=== PATIENT | female | born 1950 ===

== ENCOUNTER → 2016-06-03 | Outpatient (CLI) | payer MEDICARE ==
[~2016-06-03] MED LIST: DENOSUMAB 60 MG/ML 1 ML SYRINGE SQ NR
[2016-06-03 14:29] VITALS: BP 145/65; PULSE 87; RESP 16; TEMP 97.8
== END | disposition home or self-care (01) ==
LOC: PROCWHC3 13:29
PROVIDERS: ATTEND Internal Medicine
DX: M81.0 Age-related osteoporosis without current pathological fracture (principal)
CPT/HCPCS: 96372

== ENCOUNTER → 2016-08-27 | Outpatient (CLI) | payer MEDICARE ==
--- NOTE | 2016-08-27 12:39 | XR ---
EXAMINATION TYPE: XR lumbosacral spine min 4V DATE OF EXAM: 08/27/2016 CLINICAL HISTORY: pain COMPARISON: NONE TECHNIQUE: Frontal, lateral, and oblique images of the lumbar spine are obtained. FINDINGS: Loss of vertebral body height is noted from T11 through L4. T12 and L3 are affected to a gr eater degree with the loss of height estimated at greater than 75%. The findings are likely related t o osteoporotic compression fractures. Degenerative narrowing and spondylosis identified. No obvious b dileep retropulsion. Facet joint arthropathy. IMPRESSION: The findings are likely related to osteoporotic compression fractures.
== END | disposition home or self-care (01) ==
LOC: RADXRMAIN 12:10
PROVIDERS: ATTEND Internal Medicine
DX: M54.5 Low back pain (principal)
CPT/HCPCS: 72110

== ENCOUNTER 2017-02-28 00:38 | Observation (INO) | payer MEDICARE ==
[2017-02-28] MEDS ORDERED: SODIUM CHLORIDE 0.9% 1,000 ML with MVI, ADULT NO.4 WITH VIT K 10 ML, THIAMINE 100 MG, F... IV ONE ×4 (00:49)
[2017-02-28 01:11] LABS: Basophils % (A) 1 %; Eosinophils % (A) 1 %; HCT 36.8 % (34.0-46.0); HGB 12.3 gm/dL (11.4-16.0); Lymphocytes # (A) 0.4 k/uL (1.0-4.8); Lymphocytes % (A) 9 %; MCH 34.1 pg (25.0-35.0); MCHC 33.4 g/dL (31.0-37.0); MCV 101.8 fL (80.0-100.0); Macrocytosis Slight; Mean Platelet Volume 6.6; Monocytes # (A) 0.3 k/uL (0-1.0); Monocytes % (A) 6 %; Neutrophils # (A) 3.7 k/uL (1.3-7.7); Neutrophils % (A) 81 %; Platelet Count 187 k/uL (150-450); RBC 3.62 m/uL (3.80-5.40); RDW 13.8 % (11.5-15.5); WBC 4.5 k/uL (3.8-10.6)
--- NOTE | 2017-02-28 01:36 | ED ---
General Adult HPI - General Chief complaint: Fall Stated complaint: Fall/ETOH Time Seen by Provider: 02/28/17 00:40 Source: EMS, RN notes reviewed Mode of arrival: EMS Limitations: no limitations - History of Present Illness Initial comments: This is a 66-year-old female presents emergency Department stating that she drank too much tonight and fell. Patient states she has a bump on the back of her head which she denies headache she denies any numbness weakness and she denies any neck pain. Patient however is intoxicated. Patient also has some skin tears on both elbows and also on her formed bilaterally. Patient denies any chest pain palpitations difficulty breathing shortness of breath per patient denies any abdominal pain patient denies any nausea vomiting or diarrhea. Patient denies any new back pain. She states she has chronic back pain but nothing is changed. Patient denies any drug use. - Related Data Home Medications Medication Instructions Recorded Confirmed Calcium Carbonate [Calcium] 600 mg PO DAILY 06/03/16 06/03/16 Cholecalciferol [Vitamin D3] 1,000 unit PO DAILY 06/03/16 06/03/16 HYDROcodone/APAP 5-325MG [[place] 1 tab PO RT-BID PRN 06/03/16 06/03/16 5-325] Allergies Allergy/AdvReac Type Severity Reaction Status Date / Time No Known Allergies Allergy Verified 02/28/17 00:49 Review of Systems ROS Statement: Those systems with pertinent positive or pertinent negative responses have been documented in the HPI. ROS Other: All systems not noted in ROS Statement are negative. Past Medical History Past Medical History: Rheumatoid Arthritis (RA) Additional Past Medical History / Comment(s): osteoporosis History of Any Multi-Drug Resistant Organisms: None Reported Past Surgical History: Section, Tonsillectomy Additional Past Surgical History / Comment(s): bilateral cataract surgery Past Anesthesia/Blood Transfusion Reactions: No Reported Reaction Past Psychological History: Anxiety, Depression Smoking Status: Former smoker Past Alcohol Use History: Abuse, Daily, Heavy General Exam - General Exam Comments Initial Comments: GENERAL: Patient is well-developed and well-nourished. Patient is nontoxic and well- hydrated and is in no acute distress. Patient has a hematoma to the back of her scalp in the occipital region. Patient is intoxicated. ENT: Neck is soft and supple. No significant lymphadenopathy is noted. Oropharynx is clear. Moist mucous membranes. Neck has full range of motion without eliciting any pain. EYES: The sclera were anicteric and conjunctiva were pink and moist. Extraocular movements were intact and pupils were equal round and reactive to light. Eyelids were unremarkable. PULMONARY: Unlabored respirations. Good breath sounds bilaterally. No audible rales rhonchi or wheezing was noted. CARDIOVASCULAR: There is a regular rate and rhythm without any murmurs gallops or rubs. ABDOMEN: Soft and nontender with normal bowel sounds. No palpable organomegaly was noted. There is no palpable pulsatile mass. SKIN: Patient has skin tears on both elbows both forearms. NEUROLOGIC: Patient is alert and oriented x3. Cranial nerves II through XII are grossly intact. Motor and sensory are also intact. Normal speech, volume and content. Symmetrical smile. MUSCULOSKELETAL: Normal extremities with adequate strength and full range of motion. No lower extremity swelling or edema. No calf tenderness. LYMPHATICS: No significant lymphadenopathy is noted PSYCHIATRIC: Normal psychiatric evaluation. Limitations: no limitations Course Vital Signs 02/28/17 02/28/17 00:39 03:03 Temperature 98.1 F Pulse Rate 84 80 Respiratory 18 16 Rate Blood Pressure 149/92 134/62 O2 Sat by Pulse 100 100 Oximetry Medical Decision Making - Medical Decision Making Patient's CT of the brain and C-spine are negative. Patient is hyponatremic hypomagnesemic and intoxicated. I spoke with Dr. Barney he agreed to admit the patient I wrote admitting orders. - Lab Data Result diagrams: 02/28/17 01:03 02/28/17 01:03 Lab Results 02/28/17 02/28/17 Range/Units 01:03 01:03 WBC 4.5 (3.8-10.6) k/uL RBC 3.62 L (3.80-5.40) m/uL Hgb 12.3 (11.4-16.0) gm/dL Hct 36.8 (34.0-46.0) % MCV 101.8 H (80.0-100.0) fL MCH 34.1 (25.0-35.0) pg MCHC 33.4 (31.0-37.0) g/dL RDW 13.8 (11.5-15.5) % Plt Count 187 (150-450) k/uL Neutrophils % 81 % Lymphocytes % 9 % Monocytes % 6 % Eosinophils % 1 % Basophils % 1 % Neutrophils # 3.7 (1.3-7.7) k/uL Lymphocytes # 0.4 L (1.0-4.8) k/uL Monocytes # 0.3 (0-1.0) k/uL Eosinophils # 0.0 (0-0.7) k/uL Basophils # 0.0 (0-0.2) k/uL Macrocytosis Slight Sodium 122 L (137-145) mmol/L Potassium 4.5 (3.5-5.1) mmol/L Chloride 83 L (98-107) mmol/L Carbon Dioxide 23 (22-30) mmol/L Anion Gap 16 mmol/L BUN 3 L (7-17) mg/dL Creatinine 0.40 L (0.52-1.04) mg/dL Est GFR (MDRD) Af Amer >60 (>60 ml/min/1.73 sqM) Est GFR (MDRD) Non-Af >60 (>60 ml/min/1.73 sqM) Glucose 88 (74-99) mg/dL Calcium 8.8 (8.4-10.2) mg/dL Magnesium 1.5 L (1.6-2.3) mg/dL Total Bilirubin 0.8 (0.2-1.3) mg/dL AST 231 H (14-36) U/L ALT 102 H (9-52) U/L Alkaline Phosphatase 104 (38-126) U/L Total Protein 6.6 (6.3-8.2) g/dL Albumin 3.9 (3.5-5.0) g/dL Serum Alcohol 256 mg/dL Disposition Clinical Impression: Fall, Alcohol intoxication, Acute hyponatremia, Hypomagnesemia, Skin tear Disposition: ADMITTED IP TO THIS HOSP Referrals: Mariela Sosa MD [Primary Care Provider] - 1-2 days Time of Disposition: 03:09
[2017-02-28 01:37] LABS: ALT 102 U/L (9-52); AST 231 U/L (14-36); Albumin 3.9 g/dL (3.5-5.0); Alkaline Phosphatase 104 U/L (38-126); Anion Gap 16 mmol/L; Blood Urea Nitrogen 3 mg/dL (7-17); Calcium 8.8 mg/dL (8.4-10.2); Carbon Dioxide 23 mmol/L (22-30); Chloride 83 mmol/L (98-107); Glucose 88 mg/dL (74-99); Magnesium 1.5 mg/dL (1.6-2.3); Potassium 4.5 mmol/L (3.5-5.1); Sodium 122 mmol/L (137-145); Total Bilirubin 0.8 mg/dL (0.2-1.3); Total Protein 6.6 g/dL (6.3-8.2)
[2017-02-28 01:43] LABS: Alcohol 256 mg/dL
[2017-02-28] MEDS ORDERED: MAGNESIUM SULFATE-D5W PMX 1 GM in DEXTROSE/WATER 1 100ML.BAG IVPB ONE (01:51)
--- NOTE | 2017-02-28 01:55 | CT ---
EXAMINATION TYPE: CT brain swetha sears DATE OF EXAM: 02/28/2017 COMPARISON: NONE HISTORY: fall CT DLP: head 998.60 body 228.80 mGycm Automated exposure control for dose reduction was used. TECHNIQUE: CT scan of the head and cervical spine are performed without contrast. FINDINGS: There is mild cerebral cortical atrophy. There is no mass effect nor midline shift. There is no sign of intracranial hemorrhage. The calvarium is intact. Cervical vertebra have fairly normal alignment. There is mild hypertrophic facet arthropathy in the u pper cervical spine. There is spurring of the endplates. Skull base is intact. There is no evidence o f a fracture. IMPRESSION: Cerebral atrophy. No acute intracranial abnormality. Spondylotic changes in the cervical spine. No fracture.
[2017-02-28 03:03] VITALS: RESP 16
[2017-02-28] MEDS ORDERED: LORazepam 2 MG/ML INJ IV PRN ×3 (03:12)
[2017-02-28] MEDS ORDERED: THIAMINE 100 MG/ML 2 ML VIAL IM STA (03:12)
[2017-02-28 04:41] VITALS: BMI 33.5
[2017-02-28 08:19] VITALS: BP 110/62; PULSE 90; TEMP 98.6
--- NOTE | 2017-02-28 15:15 | P.HPIM ---
History of Present Illness H&P Date: 02/28/17 Chief Complaint: Alcohol intoxication This is a 66-year-old female with past medical history significant for heavy alcohol abuse who presented to the hospital intoxicated with alcohol. Patient said that she failed backward and hit her head. She did not have any neurological deficits or evidence of ongoing bleed. She was evaluated in the emergency room. She underwent a computed tomography scan of the brain and cervical spine showing no acute findings. Patient's alcohol level was found to be 256. She was started on IV fluid hydration and was placed in observation. Patient was not answering my questions regarding how much alcohol she usually drinks. She initially said 2 beers per day and then when I told her that she may be drinking more she said that she drinks usually 6 beers per day. I counseled her extensively about alcohol and offered her different options of treatment including going to rehab to [place]. Patient told me frankly that she is not interested to quit. She said that she's in and started drinking when she go home. She is not having any withdrawal symptoms at this time Review of Systems Review of system: 14 points review of systems were obtained and were negative except to what were mentioned in the HPI. Past Medical History Past Medical History: Asthma, COPD, Dementia, Hearing Disorder / Deafness, Hyperlipidemia, Memory Impairment, Osteoarthritis (OA), Rheumatoid Arthritis (RA ) Additional Past Medical History / Comment(s): osteoporosis, left wrist and shoulder Fx, multiple upper and Lower back fractures History of Any Multi-Drug Resistant Organisms: None Reported Past Surgical History: Section, Tonsillectomy Additional Past Surgical History / Comment(s): bilateral cataract surgery Past Anesthesia/Blood Transfusion Reactions: No Reported Reaction Past Psychological History: Anxiety, Depression Smoking Status: Former smoker Past Alcohol Use History: Abuse, Daily, Heavy - Past Family History Father Family Medical History: No Reported History Mother Family Medical History: No Reported History Medications and Allergies Home Medications Medication Instructions Recorded Confirmed Type Calcium Carbonate [Calcium] 600 mg PO DAILY 06/03/16 02/28/17 History Cholecalciferol [Vitamin D3] 1,000 unit PO DAILY 06/03/16 02/28/17 History HYDROcodone/APAP 5-325MG [[place] 1 tab PO RT-BID PRN 06/03/16 02/28/17 History 5-325] Multivitamins, Thera [Multivitamin 1 tab PO DAILY 02/28/17 02/28/17 History (formulary)] Allergies Allergy/AdvReac Type Severity Reaction Status Date / Time No Known Allergies Allergy Verified 02/28/17 09:24 Physical Exam Vitals: Vital Signs Temp Pulse Pulse Resp BP BP Pulse Ox 02/28/17 12:00 90 16 02/28/17 08:00 98.6 F 90 16 110/62 97 02/28/17 04:15 98.5 F 97 16 138/69 97 02/28/17 04:00 16 02/28/17 03:03 80 16 134/62 100 02/28/17 00:39 98.1 F 84 18 149/92 100 Intake and Output 02/28/17 02/28/17 02/28/17 06:59 14:59 22:59 Other: Voiding Method Bedside Commode # Voids 1 Weight 56.245 kg General: The patient is awake and alert, in no distress Eye: there is normal conjunctiva bilaterally. Neck: The neck is supple, there is no JVD. Cardiovascular: Normal S1-S2, no S3-S4, no murmurs. Respiratory: Lungs clear to auscultation bilaterally Gastrointestinal: Abdomen is soft, nontender Musculoskeletal: There is no pedal edema. Neurological:. Speech is normal. Skin: Skin is warm and dry there is scattered bruising on all 4 extremities Results CBC & Chem 7: 02/28/17 01:03 02/28/17 01:03 Labs: Abnormal Lab Results - Last 24 Hours (Table) 02/28/17 02/28/17 Range/Units 01:03 01:03 RBC 3.62 L (3.80-5.40) m/uL MCV 101.8 H (80.0-100.0) fL Lymphocytes # 0.4 L (1.0-4.8) k/uL Sodium 122 L (137-145) mmol/L Chloride 83 L (98-107) mmol/L BUN 3 L (7-17) mg/dL Creatinine 0.40 L (0.52-1.04) mg/dL Magnesium 1.5 L (1.6-2.3) mg/dL AST 231 H (14-36) U/L ALT 102 H (9-52) U/L Thrombosis Risk Factor Assmnt - Choose All That Apply Each Factor Represents 1 point: Minor surgery planned Each Risk Factor Represents 2 Points: Age 61-74 years Thrombosis Risk Factor Assessment Total Risk Factor Score: 3 Thrombosis Risk Factor Assessment Level: Moderate Risk Assessment and Plan Assessment: This is a 66-year-old female with past medical history significant for heavy alcohol abuse who presented to the hospital intoxicated with alcohol. Patient said that she failed backward and hit her head. She did not have any neurological deficits or evidence of ongoing bleed. She was evaluated in the emergency room. She underwent a computed tomography scan of the brain and cervical spine showing no acute findings. Patient's alcohol level was found to be 256. She was started on IV fluid hydration and was placed in observation. Patient was not answering my questions regarding how much alcohol she usually drinks. She initially said 2 beers per day and then when I told her that she may be drinking more she said that she drinks usually 6 beers per day. I counseled her extensively about alcohol and offered her different options of treatment including going to rehab to [place]. Patient told me frankly that she is not interested to quit. She said that she's in and started drinking when she go home. She is not having any withdrawal symptoms at this time 1. Alcohol intoxication: Now sober. Patient was hydrated aggressively overnight. 2. Mechanical fall: Computed tomography scan of the brain and cervical spine with no acute findings 3. Heavy alcohol abuse: Counseled extensively. Patient is not interested to quit. 4. Hyponatremia: Secondary to heavy beer drinking. Counseled extensively.
--- NOTE | 2017-02-28 15:16 | P.DS ---
Providers Date of admission: 02/28/17 03:09 Expected date of discharge: 02/28/17 Attending physician: Chantel Barney Primary care physician: Mariela Sheila [facility] Course: This is a 66-year-old female with past medical history significant for heavy alcohol abuse who presented to the hospital intoxicated with alcohol. Patient said that she failed backward and hit her head. She did not have any neurological deficits or evidence of ongoing bleed. She was evaluated in the emergency room. She underwent a computed tomography scan of the brain and cervical spine showing no acute findings. Patient's alcohol level was found to be 256. She was started on IV fluid hydration and was placed in observation. Patient was not answering my questions regarding how much alcohol she usually drinks. She initially said 2 beers per day and then when I told her that she may be drinking more she said that she drinks usually 6 beers per day. I counseled her extensively about alcohol and offered her different options of treatment including going to rehab to [place]. Patient told me frankly that she is not interested to quit. She said that she's in and started drinking when she go home. She is not having any withdrawal symptoms at this time 1. Alcohol intoxication: Now sober. Patient was hydrated aggressively overnight. 2. Mechanical fall: Computed tomography scan of the brain and cervical spine with no acute findings 3. Heavy alcohol abuse: Counseled extensively. Patient is not interested to quit. 4. Hyponatremia: Secondary to heavy beer drinking. Counseled extensively. Patient Condition at Discharge: Poor Plan - Discharge Summary Discharge Rx Participant: No New Discharge Prescriptions: New Folic Acid 1 mg PO DAILY #14 tablet Thiamine [Vitamin B-1] 100 mg PO BID@1200,1700 #14 tab Continue Cholecalciferol [Vitamin D3] 1,000 unit PO DAILY HYDROcodone/APAP 5-325MG [[place] 5-325] 1 tab PO RT-BID PRN PRN Reason: Moderate To Severe Pain Calcium Carbonate [Calcium] 600 mg PO DAILY Multivitamins, Thera [Multivitamin (formulary)] 1 tab PO DAILY Discharge Medication List Calcium Carbonate [Calcium] 600 mg PO DAILY 06/03/16 [History] Cholecalciferol [Vitamin D3] 1,000 unit PO DAILY 06/03/16 [History] HYDROcodone/APAP 5-325MG [[place] 5-325] 1 tab PO RT-BID PRN 06/03/16 [History] Folic Acid 1 mg PO DAILY #14 tablet 02/28/17 [Rx] Multivitamins, Thera [Multivitamin (formulary)] 1 tab PO DAILY 02/28/17 [History ] Thiamine [Vitamin B-1] 100 mg PO BID@1200,1700 #14 tab 02/28/17 [Rx] Follow up Appointment(s)/Referral(s): Mariela Sosa MD [Primary Care Provider] - 1-2 days
[2017-02-28] MEDS ORDERED: THIAMINE 100 MG TAB PO SCH (17:00)
== END 2017-02-28 16:19 | disposition home or self-care (01) ==
LOC: EC 00:38 → 3OBS 03:09
PROVIDERS: ADMIT Internal Medicine; ATTEND Internal Medicine
DX: F10.129 Alcohol abuse with intoxication, unspecified (principal); Y90.8 Blood alcohol level of 240 mg/100 ml or more; E87.1 Hypo-osmolality and hyponatremia; E83.42 Hypomagnesemia; S51.812A Laceration without foreign body of left forearm, initial encounter; S51.811A Laceration without foreign body of right forearm, initial encounter; S51.011A Laceration without foreign body of right elbow, initial encounter; S51.012A Laceration without foreign body of left elbow, initial encounter; S00.03XA Contusion of scalp, initial encounter; W18.30XA Fall on same level, unspecified, initial encounter; G89.29 Other chronic pain; M54.9 Dorsalgia, unspecified; M06.9 Rheumatoid arthritis, unspecified; M81.0 Age-related osteoporosis without current pathological fracture; Z87.891 Personal history of nicotine dependence; H91.90 Unspecified hearing loss, unspecified ear; M19.90 Unspecified osteoarthritis, unspecified site
CPT/HCPCS: 99285; 96361 ×2; 96365 ×2; 96375; 36415; 80053; 83735; 85025; 80320; 72125; 70450; G0378; J2060; J3411; J3475

== ENCOUNTER 2017-03-17 13:06 | Inpatient (IN) | payer MEDICARE ==
[2017-03-17] MEDS ORDERED: FUROSEMIDE 10 MG/ML 2 ML VIAL IV ONE (13:39)
[2017-03-17] MEDS ORDERED: IPRATROPIUM-ALBUTEROL 3 ML NEB INHALATION STA (13:43)
--- NOTE | 2017-03-17 13:43 | ED ---
General Adult HPI - General Chief complaint: Weakness Stated complaint: Swollen feet/Weak Time Seen by Provider: 03/17/17 13:20 Source: patient, RN notes reviewed Mode of arrival: wheelchair Limitations: no limitations - History of Present Illness Initial comments: This is a 67-year-old female who presents to the emergency department because her feet are swollen and she's unable times. Patient states been ongoing all week and getting progressively worse. Patient thinks she can't walk because her feet are swollen and it hurts but she also states she feels weak all over. Patient denies any pain while lying in bed. Patient states she's so short of breath currently for emphysema and according to her nephew she continues to smoke. Patient denies any chest pain palpitations. Patient denies any recent fever chills or cough per patient denies abdominal pain patient denies nausea vomiting diarrhea. - Related Data Home Medications Medication Instructions Recorded Confirmed HYDROcodone/APAP 5-325MG [[place] 1 tab PO RT-BID PRN 06/03/16 03/17/17 5-325] Ibuprofen 400 - 800 mg PO Q6H PRN 03/17/17 03/17/17 Allergies Allergy/AdvReac Type Severity Reaction Status Date / Time No Known Allergies Allergy Verified 03/17/17 13:48 Review of Systems ROS Statement: Those systems with pertinent positive or pertinent negative responses have been documented in the HPI. ROS Other: All systems not noted in ROS Statement are negative. Past Medical History Past Medical History: Asthma, COPD, Dementia, Hearing Disorder / Deafness, Hyperlipidemia, Memory Impairment, Osteoarthritis (OA), Rheumatoid Arthritis (RA ) Additional Past Medical History / Comment(s): osteoporosis, left wrist and shoulder Fx, multiple upper and Lower back fractures History of Any Multi-Drug Resistant Organisms: None Reported Past Surgical History: Section, Tonsillectomy Additional Past Surgical History / Comment(s): bilateral cataract surgery Past Anesthesia/Blood Transfusion Reactions: No Reported Reaction Past Psychological History: Anxiety, Depression Smoking Status: Current some day smoker Past Alcohol Use History: Abuse, Daily, Heavy Past Drug Use History: None Reported - Past Family History Father Family Medical History: No Reported History Mother Family Medical History: No Reported History General Exam - General Exam Comments Initial Comments: GENERAL: Patient is well-developed and well-nourished. Patient is nontoxic and well- hydrated and is in mild distress. ENT: Neck is soft and supple. No significant lymphadenopathy is noted. Oropharynx is clear. Moist mucous membranes. Neck has full range of motion without eliciting any pain. EYES: The sclera were anicteric and conjunctiva were pink and moist. Extraocular movements were intact and pupils were equal round and reactive to light. Eyelids were unremarkable. PULMONARY: Patient has diminished breath sounds throughout. CARDIOVASCULAR: There is a regular rate and rhythm without any murmurs gallops or rubs. ABDOMEN: Soft and nontender with normal bowel sounds. No palpable organomegaly was noted. There is no palpable pulsatile mass. SKIN: Skin is clear with no lesions or rashes and otherwise unremarkable. NEUROLOGIC: Patient is alert and oriented x3. Cranial nerves II through XII are grossly intact. Motor and sensory are also intact. Normal speech, volume and content. Symmetrical smile. MUSCULOSKELETAL: Normal extremities with adequate strength and full range of motion. Patient has 2+ edema bilaterally LYMPHATICS: No significant lymphadenopathy is noted PSYCHIATRIC: Normal psychiatric evaluation. Normal interpersonal interactions appears functionally intact in deals appropriately with others. Limitations: no limitations Course Vital Signs 03/17/17 03/17/17 03/17/17 13:22 13:56 14:06 Temperature 97.7 F Pulse Rate 85 80 82 Respiratory 18 Rate Blood Pressure 123/60 O2 Sat by Pulse 99 Oximetry 03/17/17 14:19 Temperature Pulse Rate 78 Respiratory 20 Rate Blood Pressure 138/64 O2 Sat by Pulse 100 Oximetry Medical Decision Making - Medical Decision Making EKG shows normal sinus rhythm at 75 bpm DE interval is 138 QRS is 86 QT interval 386 QTC is 431 per patient's EKG shows no ST segment elevation or depression or T wave abnormalities are noted I spoke with Dr. Sheila Sosa agreed to admit the patient admitted the patient. Chest x-ray shows no acute abnormality - Lab Data Result diagrams: 03/17/17 14:07 03/17/17 14:07 Lab Results 03/17/17 03/17/17 03/17/17 Range/Units 14:07 14: 14:07 WBC 2.7 L (3.8-10.6) k/uL RBC 3.51 L (3.80-5.40) m/uL Hgb 11.7 (11.4-16.0) gm/dL Hct 34.9 (34.0-46.0) % MCV 99.5 (80.0-100.0) fL MCH 33.4 (25.0-35.0) pg MCHC 33.6 (31.0-37.0) g/dL RDW 13.4 (11.5-15.5) % Plt Count 184 (150-450) k/uL Neutrophils % 71 % Lymphocytes % 15 % Monocytes % 8 % Eosinophils % 0 % Basophils % 1 % Neutrophils # 2.0 (1.3-7.7) k/uL Lymphocytes # 0.4 L (1.0-4.8) k/uL Monocytes # 0.2 (0-1.0) k/uL Eosinophils # 0.0 (0-0.7) k/uL Basophils # 0.0 (0-0.2) k/uL PT (9.0-12.0) sec INR (<1.2) APTT (22.0-30.0) sec Sodium 116 L* (137-145) mmol/L Potassium 4.7 (3.5-5.1) mmol/L Chloride 78 L* (98-107) mmol/L Carbon Dioxide 26 (22-30) mmol/L Anion Gap 12 mmol/L BUN 2 L (7-17) mg/dL Creatinine 0.42 L (0.52-1.04) mg/dL Est GFR (MDRD) Af Amer >60 (>60 ml/min/1.73 sqM) Est GFR (MDRD) Non-Af >60 (>60 ml/min/1.73 sqM) Glucose 85 (74-99) mg/dL Plasma Lactic Acid King (0.7-2.0) mmol/L Calcium 8.9 (8.4-10.2) mg/dL Magnesium 1.5 L (1.6-2.3) mg/dL Total Bilirubin 0.6 (0.2-1.3) mg/dL AST 143 H (14-36) U/L ALT 89 H (9-52) U/L Alkaline Phosphatase 173 H (38-126) U/L Total Creatine Kinase 143 H (30-135) U/L CK-MB (CK-2) 5.0 H* (0.0-2.4) ng/mL CK-MB (CK-2) Rel Index 3.5 Troponin I <0.012 (0.000-0.034) ng/mL NT-Pro-B Natriuret Pep pg/mL Total Protein 6.3 (6.3-8.2) g/dL Albumin 3.7 (3.5-5.0) g/dL Urine Color Urine Appearance (Clear) Urine pH (5.0-8.0) Ur Specific [place] (1.001-1.035) Urine Protein (Negative) Urine Glucose (UA) (Negative) Urine Ketones (Negative) Urine Blood (Negative) Urine Nitrite (Negative) Urine Bilirubin (Negative) Urine Urobilinogen (<2.0) mg/dL Ur Leukocyte Esterase (Negative) Serum Alcohol mg/dL 03/17/17 03/17/17 03/17/17 Range/Units 14:07 14:07 14:07 WBC (3.8-10.6) k/uL RBC (3.80-5.40) m/uL Hgb (11.4-16.0) gm/dL Hct (34.0-46.0) % MCV (80.0-100.0) fL MCH (25.0-35.0) pg MCHC (31.0-37.0) g/dL RDW (11.5-15.5) % Plt Count (150-450) k/uL Neutrophils % % Lymphocytes % % Monocytes % % Eosinophils % % Basophils % % Neutrophils # (1.3-7.7) k/uL Lymphocytes # (1.0-4.8) k/uL Monocytes # (0-1.0) k/uL Eosinophils # (0-0.7) k/uL Basophils # (0-0.2) k/uL PT 11.1 (9.0-12.0) sec INR 1.1 (<1.2) APTT 27.1 (22.0-30.0) sec Sodium (137-145) mmol/L Potassium (3.5-5.1) mmol/L Chloride (98-107) mmol/L Carbon Dioxide (22-30) mmol/L Anion Gap mmol/L BUN (7-17) mg/dL Creatinine (0.52-1.04) mg/dL Est GFR (MDRD) Af Amer (>60 ml/min/1.73 sqM) Est GFR (MDRD) Non-Af (>60 ml/min/1.73 sqM) Glucose (74-99) mg/dL Plasma Lactic Acid King 2.6 H* (0.7-2.0) mmol/L Calcium (8.4-10.2) mg/dL Magnesium (1.6-2.3) mg/dL Total Bilirubin (0.2-1.3) mg/dL AST (14-36) U/L ALT (9-52) U/L Alkaline Phosphatase (38-126) U/L Total Creatine Kinase (30-135) U/L CK-MB (CK-2) (0.0-2.4) ng/mL CK-MB (CK-2) Rel Index Troponin I (0.000-0.034) ng/mL NT-Pro-B Natriuret Pep 541 pg/mL Total Protein (6.3-8.2) g/dL Albumin (3.5-5.0) g/dL Urine Color Urine Appearance (Clear) Urine pH (5.0-8.0) Ur Specific [place] (1.001-1.035) Urine Protein (Negative) Urine Glucose (UA) (Negative) Urine Ketones (Negative) Urine Blood (Negative) Urine Nitrite (Negative) Urine Bilirubin (Negative) Urine Urobilinogen (<2.0) mg/dL Ur Leukocyte Esterase (Negative) Serum Alcohol mg/dL 03/17/17 03/17/17 Range/Units 14:55 15:00 WBC (3.8-10.6) k/uL RBC (3.80-5.40) m/uL Hgb (11.4-16.0) gm/dL Hct (34.0-46.0) % MCV (80.0-100.0) fL MCH (25.0-35.0) pg MCHC (31.0-37.0) g/dL RDW (11.5-15.5) % Plt Count (150-450) k/uL Neutrophils % % Lymphocytes % % Monocytes % % Eosinophils % % Basophils % % Neutrophils # (1.3-7.7) k/uL Lymphocytes # (1.0-4.8) k/uL Monocytes # (0-1.0) k/uL Eosinophils # (0-0.7) k/uL Basophils # (0-0.2) k/uL PT (9.0-12.0) sec INR (<1.2) APTT (22.0-30.0) sec Sodium (137-145) mmol/L Potassium (3.5-5.1) mmol/L Chloride (98-107) mmol/L Carbon Dioxide (22-30) mmol/L Anion Gap mmol/L BUN (7-17) mg/dL Creatinine (0.52-1.04) mg/dL Est GFR (MDRD) Af Amer (>60 ml/min/1.73 sqM) Est GFR (MDRD) Non-Af (>60 ml/min/1.73 sqM) Glucose (74-99) mg/dL Plasma Lactic Acid [place] (0.7-2.0) mmol/L Calcium (8.4-10.2) mg/dL Magnesium (1.6-2.3) mg/dL Total Bilirubin (0.2-1.3) mg/dL AST (14-36) U/L ALT (9-52) U/L Alkaline Phosphatase (38-126) U/L Total Creatine Kinase (30-135) U/L CK-MB (CK-2) (0.0-2.4) ng/mL CK-MB (CK-2) Rel Index Troponin I (0.000-0.034) ng/mL NT-Pro-B Natriuret Pep pg/mL Total Protein (6.3-8.2) g/dL Albumin (3.5-5.0) g/dL Urine Color Colorless Urine Appearance Clear (Clear) Urine pH 5.0 (5.0-8.0) Ur Specific [place] 1.003 (1.001-1.035) Urine Protein Negative (Negative) Urine Glucose (UA) Negative (Negative) Urine Ketones Negative (Negative) Urine Blood Negative (Negative) Urine Nitrite Negative (Negative) Urine Bilirubin Negative (Negative) Urine Urobilinogen <2.0 (<2.0) mg/dL Ur Leukocyte Esterase Negative (Negative) Serum Alcohol 113 mg/dL Disposition Clinical Impression: Hyponatremia, Hypomagnesemia, Alcohol intoxication, Generalized weakness Disposition: ADMITTED IP TO THIS [facility] Referrals: Mariela Sosa MD [Primary Care Provider] - 1-2 days Time of Disposition: 15:57
[2017-03-17 14:35] LABS: ALT 89 U/L (9-52); AST 143 U/L (14-36); Albumin 3.7 g/dL (3.5-5.0); Alkaline Phosphatase 173 U/L (38-126); Anion Gap 12 mmol/L; Blood Urea Nitrogen 2 mg/dL (7-17); Calcium 8.9 mg/dL (8.4-10.2); Carbon Dioxide 26 mmol/L (22-30); Glucose 85 mg/dL (74-99); Magnesium 1.5 mg/dL (1.6-2.3); Potassium 4.7 mmol/L (3.5-5.1); Total Bilirubin 0.6 mg/dL (0.2-1.3); Total Protein 6.3 g/dL (6.3-8.2)
--- NOTE | 2017-03-17 14:35 | XR ---
EXAMINATION TYPE: XR chest 2V DATE OF EXAM: 03/17/2017 COMPARISON: NONE HISTORY: Weakness and lower extremity swelling. TECHNIQUE: Frontal and lateral views of the chest are obtained. FINDINGS: There is no focal air space opacity, pleural effusion, or pneumothorax seen. The cardiac silhouette size is within normal limits. Old healed right posterior and lateral upper and mid rib fractures are present. Compression deformity of the midthoracic vertebral body with near complete jeovanny tebral body height loss is seen superimposed upon osseous demineralization. IMPRESSION: 1. No acute cardiopulmonary process. 2. Midthoracic vertebral compression deformity of indeterminate age. Correlate with point tenderness to determine chronicity. MR could be performed to evaluate for bone marrow edema if clinically indica charles.
[2017-03-17 14:36] LABS: Partial Thromboplastin Time 27.1 sec (22.0-30.0)
[2017-03-17 14:40] LABS: Basophils % (A) 1 %; Eosinophils % (A) 0 %; HCT 34.9 % (34.0-46.0); HGB 11.7 gm/dL (11.4-16.0); Lymphocytes # (A) 0.4 k/uL (1.0-4.8); Lymphocytes % (A) 15 %; MCH 33.4 pg (25.0-35.0); MCHC 33.6 g/dL (31.0-37.0); MCV 99.5 fL (80.0-100.0); Mean Platelet Volume 6.9; Monocytes # (A) 0.2 k/uL (0-1.0); Monocytes % (A) 8 %; Neutrophils % (A) 71 %; Platelet Count 184 k/uL (150-450); RBC 3.51 m/uL (3.80-5.40); RDW 13.4 % (11.5-15.5); Sodium 116 mmol/L (137-145); WBC 2.7 k/uL (3.8-10.6)
[2017-03-17 14:41] LABS: Chloride 78 mmol/L (98-107)
[2017-03-17 14:43] LABS: Creatine Kinase 143 U/L (30-135)
[2017-03-17 14:48] LABS: INR 1.1 (<1.2); Prothrombin Time 11.1 sec (9.0-12.0)
[2017-03-17] MEDS ORDERED: SODIUM CHLORIDE 0.9% 500 ML IV ONE (14:50)
[2017-03-17 14:57] LABS: Troponin I <0.012 ng/mL (0.000-0.034)
[2017-03-17 15:18] LABS: Appearance,Urine Clear (Clear); Bilirubin,Urine Negative (Negative); Blood,Urine Negative (Negative); Color,Urine Colorless; Glucose,Urine (UA) Negative (Negative); Ketones,Urine Negative (Negative); Leukocyte Esterase,Urine Negative (Negative); Nitrite,Urine Negative (Negative); Protein,Urine Negative (Negative); Specific Gravity,Urine 1.003 (1.001-1.035); Urobilinogen,Urine <2.0 mg/dL (<2.0)
[2017-03-17] MEDS ORDERED: SODIUM CHLORIDE 0.9% 1,000 ML IV ONE (15:59)
[2017-03-17] MEDS ORDERED: LORazepam 2 MG/ML INJ IV PRN ×3 (16:01)
[2017-03-17] MEDS ORDERED: THIAMINE 100 MG/ML 2 ML VIAL IM STA (16:01)
[2017-03-17] MEDS ORDERED: MAGNESIUM SULFATE-D5W PMX 1 GM in DEXTROSE/WATER 1 100ML.BAG IVPB ONE (16:11)
[2017-03-17] MEDS: THIAMINE 100 MG TAB PO SCH (17:47)
[2017-03-17] MEDS ORDERED: IBUPROFEN 800 MG TAB PO PRN (18:12)
[2017-03-17] MEDS: cefTRIAXone IN SWFI 1,000 MG/10 ML SYRINGE IVP SCH (21:45)
[2017-03-17 23:56] LABS: Anion Gap 8 mmol/L; Blood Urea Nitrogen 4 mg/dL (7-17); Calcium 8.7 mg/dL (8.4-10.2); Carbon Dioxide 30 mmol/L (22-30); Chloride 82 mmol/L (98-107); Glucose 120 mg/dL (74-99); Magnesium 1.7 mg/dL (1.6-2.3); Potassium 4.2 mmol/L (3.5-5.1)
[2017-03-18] LABS: Sodium 120 mmol/L (137-145)
[2017-03-18 06:45] LABS: Anion Gap 5 mmol/L; Blood Urea Nitrogen 4 mg/dL (7-17); Calcium 8.4 mg/dL (8.4-10.2); Carbon Dioxide 30 mmol/L (22-30); Chloride 89 mmol/L (98-107); Glucose 101 mg/dL (74-99); Potassium 3.9 mmol/L (3.5-5.1); Sodium 124 mmol/L (137-145)
[2017-03-18 06:46] LABS: Basophils % (A) 0 %; Eosinophils % (A) 1 %; HCT 30.1 % (34.0-46.0); Lymphocytes # (A) 0.5 k/uL (1.0-4.8); Lymphocytes % (A) 18 %; MCHC 32.6 g/dL (31.0-37.0); MCV 104.2 fL (80.0-100.0); Macrocytosis Slight; Monocytes # (A) 0.3 k/uL (0-1.0); Monocytes % (A) 12 %; Neutrophils # (A) 1.6 k/uL (1.3-7.7); Neutrophils % (A) 62 %; Platelet Count 149 k/uL (150-450); RBC 2.89 m/uL (3.80-5.40); RDW 13.4 % (11.5-15.5); WBC 2.6 k/uL (3.8-10.6)
[2017-03-18 06:50] LABS: HGB 9.8 gm/dL (11.4-16.0)
[2017-03-18] MEDS: cefTRIAXone IN SWFI 1,000 MG/10 ML SYRINGE IVP SCH (10:06)
[2017-03-18] MEDS: HYDROcodone/APAP 5-325MG 1 EACH TAB PO PRN ×2 (11:46→21:38)
[2017-03-18] MEDS: THIAMINE 100 MG TAB PO SCH ×2 (12:50→14:17)
--- NOTE | 2017-03-18 13:26 | US ---
EXAMINATION TYPE: US venous doppler duplex LE BI DATE OF EXAM: 03/18/2017 12:24 PM COMPARISON: NONE CLINICAL HISTORY: bilateral leg edema and pain rule out DVT. SIDE PERFORMED: Bilateral TECHNIQUE: The lower extremity deep venous system is examined utilizing real time linear array sonog brian with graded compression, doppler sonography and color-flow sonography. VESSELS IMAGED: External Iliac Vein (EIV) Common Femoral Vein Deep Femoral Vein Greater Saphenous Vein * Femoral Vein Popliteal Vein Small Saphenous Vein * Proximal Calf Veins (* superficial vessels) Right Leg: patient unable to adduct leg making popliteal area technically difficult, negative for DV T. Left Leg: Negative for DVT Grayscale, color doppler, spectral doppler imaging performed of the deep veins of the bilateral lower extremities. There is normal flow, compressibility, vascular waveforms. IMPRESSION: No ultrasound evidence for acute DVT in either lower extremity.
--- NOTE | 2017-03-18 13:57 | P.HPIM ---
History of Present Illness H&P Date: 03/18/17 Chief Complaint: Bilateral lower extremity edema and difficulty ambulating This is a 67-year-old female with a known history of COPD, alcohol abuse, hyperlipidemia and dementia. Patient reports over the last week she's had lower extremity edema. She's having difficulty with ambulating. He reports that it hurts to walk on them. She has multiple bruising and scabs on her legs. She does report following some times. No loss of consciousness. Her alcohol level was elevated at 113 on admission she's been placed on the CIWA protocol. Dopplers of the lower extremities completed which were negative for DVT. She was given 1 dose of IV Lasix. Chest x-ray showed no acute pulmonary disease did show a mid thoracic vertebral compression deformity of indeterminate age. Patient does report having thoracic spinal fractures. She was found to be hyponatremic with a sodium level CXVI and magnesium level 1.5. Telemetry monitoring showed possible atrial fibrillation with rapid ventricular response short episode with a heart rate of 158. Cardiology will be consulted. BNP level was in the 500s. Lactic acid level elevated admission at 3.3. Patient was given IV fluids. White count 2.6 hemoglobin 9.8 and platelets 140. She denies any chest pain or worsening shortness of breath. Denies any nausea or vomiting. Denies any difficulty or burning with urination. She reports that she always has chronic diarrhea. Stool for C. diff was ordered. This was negative. She patient is requesting to be restarted on her Imodium. Imodium has been ordered. Review of Systems Please refer to HPI otherwise unremarkable Past Medical History Past Medical History: Asthma, COPD, Dementia, Hearing Disorder / Deafness, Hyperlipidemia, Memory Impairment, Osteoarthritis (OA), Rheumatoid Arthritis (RA ) Additional Past Medical History / Comment(s): osteoporosis, left wrist and shoulder Fx, multiple upper and Lower back fractures History of Any Multi-Drug Resistant Organisms: None Reported Past Surgical History: Section, Tonsillectomy Additional Past Surgical History / Comment(s): bilateral cataract surgery Past Anesthesia/Blood Transfusion Reactions: No Reported Reaction Smoking Status: Former smoker - Past Family History Father Family Medical History: No Reported History Mother Family Medical History: No Reported History Medications and Allergies Home Medications Medication Instructions Recorded Confirmed Type HYDROcodone/APAP 5-325MG [[place] 1 tab PO RT-BID PRN 06/03/16 03/17/17 History 5-325] Ibuprofen 400 - 800 mg PO Q6H PRN 03/17/17 03/17/17 History Allergies Allergy/AdvReac Type Severity Reaction Status Date / Time No Known Allergies Allergy Verified 03/17/17 13:48 Physical Exam Vitals: Vital Signs Temp Pulse Pulse Resp BP BP Pulse Ox 03/18/17 11:21 97.3 F L 77 16 108/56 97 03/18/17 08:50 82 16 03/18/17 08:00 98.7 F 82 16 112/67 100 03/18/17 04:00 85 18 03/18/17 03:55 98.2 F 85 18 122/57 95 03/18/17 00:00 69 18 03/17/17 23:58 98.7 F 69 18 110/60 98 03/17/17 20:00 97.5 F L 84 18 104/57 97 03/17/17 17:21 97.2 F L 83 20 124/81 97 03/17/17 16:27 78 20 123/68 100 03/17/17 14:19 78 20 138/64 100 03/17/17 14:06 82 03/17/17 13:56 80 Intake and Output 03/17/17 03/18/17 03/18/17 22:59 06:59 14:59 Intake Total 1525 Balance 1525 Intake: Intake, IV Titration 1375 Amount Sodium Chloride 0.9% 1, 1375 000 ml @ 125 mls/hr IV . Q8H ONE Rx#:[id number] Oral 150 Other: Voiding Method Bedside Commode Bedside Commode Bedside Commode Incontinent # Voids 2 Weight 58 kg Head normocephalic Neck supple Lungs clear to auscultation bilaterally no wheezing or crackles Heart regular rate and rhythm S1-S2, no rub or gallop Abdomen is soft nontender nondistended positive bowel sounds no hepatosplenomegaly Extremities +1 pitting edema bilateral lower extremities. Multiple scabs and bruising on both legs. Neuro alert and orientated to 3 Results CBC & Chem 7: 03/18/17 06:07 03/18/17 06:07 Labs: Abnormal Lab Results - Last 24 Hours (Table) 03/17/17 03/17/17 03/17/17 Range/Units 14:07 14:07 14:07 WBC 2.7 L (3.8-10.6) k/uL RBC 3.51 L (3.80-5.40) m/uL Hgb (11.4-16.0) gm/dL Hct (34.0-46.0) % MCV (80.0-100.0) fL Plt Count (150-450) k/uL Lymphocytes # 0.4 L (1.0-4.8) k/uL Sodium 116 L* (137-145) mmol/L Chloride 78 L* (98-107) mmol/L BUN 2 L (7-17) mg/dL Creatinine 0.42 L (0.52-1.04) mg/dL Glucose (74-99) mg/dL Plasma Lactic Acid King (0.7-2.0) mmol/L Magnesium 1.5 L (1.6-2.3) mg/dL AST 143 H (14-36) U/L ALT 89 H (9-52) U/L Alkaline Phosphatase 173 H (38-126) U/L Total Creatine Kinase 143 H (30-135) U/L CK-MB (CK-2) 5.0 H* (0.0-2.4) ng/mL 03/17/17 03/17/17 03/17/17 Range/Units 14:07 19:24 23:18 WBC (3.8-10.6) k/uL RBC (3.80-5.40) m/uL Hgb (11.4-16.0) gm/dL Hct (34.0-46.0) % MCV (80.0-100.0) fL Plt Count (150-450) k/uL Lymphocytes # (1.0-4.8) k/uL Sodium 120 L* (137-145) mmol/L Chloride 82 L (98-107) mmol/L BUN 4 L (7-17) mg/dL Creatinine 0.50 L (0.52-1.04) mg/dL Glucose 120 H (74-99) mg/dL Plasma Lactic Acid [place] 2.6 H* 3.3 H* (0.7-2.0) mmol/L Magnesium (1.6-2.3) mg/dL AST (14-36) U/L ALT (9-52) U/L Alkaline Phosphatase (38-126) U/L Total Creatine Kinase (30-135) U/L CK-MB (CK-2) (0.0-2.4) ng/mL 03/18/17 03/18/17 Range/Units 06:07 06:07 WBC 2.6 L (3.8-10.6) k/uL RBC 2.89 L (3.80-5.40) m/uL Hgb 9.8 L D (11.4-16.0) gm/dL Hct 30.1 L (34.0-46.0) % MCV 104.2 H (80.0-100.0) fL Plt Count 149 L (150-450) k/uL Lymphocytes # 0.5 L (1.0-4.8) k/uL Sodium 124 L (137-145) mmol/L Chloride 89 L (98-107) mmol/L BUN 4 L (7-17) mg/dL Creatinine 0.40 L (0.52-1.04) mg/dL Glucose 101 H (74-99) mg/dL Plasma Lactic Acid [place] (0.7-2.0) mmol/L Magnesium (1.6-2.3) mg/dL AST (14-36) U/L ALT (9-52) U/L Alkaline Phosphatase (38-126) U/L Total Creatine Kinase (30-135) U/L CK-MB (CK-2) (0.0-2.4) ng/mL Thrombosis Risk Factor Assmnt - Choose All That Apply Any of the Below Risk Factors Present?: Yes Each Factor Represents 1 point: Abnormal pulmonary function (COPD) Other Risk Factors: Yes Each Risk Factor Represents 2 Points: Age 61-74 years Other congenital or acquired thrombophilia - If yes, enter type in comment: No Thrombosis Risk Factor Assessment Total Risk Factor Score: 3 Thrombosis Risk Factor Assessment Level: Moderate Risk Assessment and Plan Assessment: 1. Bilateral lower extremity edema and pain with walking: Patient did receive 1 dose of IV Lasix in the emergency room. Chest x-ray showed no evidence of fluid overload. BNP was only 500. Venous Doppler was negative for DVT. Patient will be evaluated by cardiology 2. Possible short episode of atrial fibrillation with rapid ventricular response. Patient currently in sinus rhythm. We'll have patient evaluated by cardiology. Continue telemetry monitoring. 3. Hyponatremia: Likely secondary to her alcohol consumption of beer. Sodium level 116 on admission up to 124. Continue IV fluids. Monitor closely because of the lower extremity edema 4. Alcohol intoxication present on admission with a alcohol level CXIII. Patient placed on the CIWA protocol. Continue thiamine and multivitamin 5. Hypomagnesemia. Patient receiving magnesium supplement. Elevated LFTs likely related to patient's alcohol consumption. Denies any abdominal pain. 6. Lactic acid elevated on admission improving with IV fluids. 7. History of COPD stable 8. Multiple scabs on patient's legs. Continue with Rocephin 9. Leukopenia likely related to patient's alcohol abuse. Continue to monitor 10. Anemia with elevated MCV. We'll check a B12, folate level and iron studies. No evidence of active bleeding. Also could be related to IV fluids. Repeat CBC in a.m. DVT prophylaxis Lovenox Time with Patient: Greater than 30 (Greater than 50% of the total time spent in counseling and coordination of care.I performed an examination of the patient and discussed their management with the physician Electrician Maintenance. I have reviewed the Physician Electrician Maintenance's notes and agree with the documented findings and plan of care)
[2017-03-18] MEDS: LOPERAMIDE 2 MG CAP PO PRN ×2 (14:16→21:38)
[2017-03-18] MEDS: DILTIAZEM 125 MG in SODIUM CHLORIDE 0.9% 100 ML IV SCH (18:29)
[2017-03-18 18:56] LABS: Folate, Serum 9.3 ng/mL
[2017-03-18 19:30] LABS: Iron Saturation 35.39 (12.00-45.00)
[2017-03-18] MEDS: APIXABAN 5 MG TAB PO SCH (21:38)
[2017-03-19] MEDS: DILTIAZEM 125 MG in SODIUM CHLORIDE 0.9% 100 ML IV SCH (04:46)
[2017-03-19 07:09] LABS: ALT 55 U/L (9-52); AST 54 U/L (14-36); Albumin 2.4 g/dL (3.5-5.0); Alkaline Phosphatase 111 U/L (38-126); Anion Gap 4 mmol/L; Blood Urea Nitrogen 3 mg/dL (7-17); Calcium 8.6 mg/dL (8.4-10.2); Carbon Dioxide 31 mmol/L (22-30); Chloride 89 mmol/L (98-107); Glucose 99 mg/dL (74-99); Magnesium 1.7 mg/dL (1.6-2.3); Potassium 3.2 mmol/L (3.5-5.1); Sodium 124 mmol/L (137-145); Total Bilirubin 0.4 mg/dL (0.2-1.3); Total Protein 4.6 g/dL (6.3-8.2)
[2017-03-19 07:11] LABS: HCT 28.2 % (34.0-46.0); HGB 9.3 gm/dL (11.4-16.0); MCH 33.6 pg (25.0-35.0); MCHC 32.8 g/dL (31.0-37.0); MCV 102.2 fL (80.0-100.0); Macrocytosis Slight; Mean Platelet Volume 7.4; Platelet Count 146 k/uL (150-450); RBC 2.76 m/uL (3.80-5.40); RDW 13.5 % (11.5-15.5); WBC 2.4 k/uL (3.8-10.6)
[2017-03-19] MEDS ORDERED: MAGNESIUM SULFATE-D5W PMX 1 GM in DEXTROSE/WATER 1 100ML.BAG IVPB ONE (08:02)
[2017-03-19] MEDS ORDERED: POTASSIUM CHLORIDE ER 20 MEQ TAB.ER PO STA (08:02)
[2017-03-19] MEDS ORDERED: ENOXAPARIN 40 MG/0.4 ML SYRINGE SQ SCH (09:00)
[2017-03-19] MEDS: APIXABAN 5 MG TAB PO SCH ×2 (10:34→20:45)
[2017-03-19 10:35] LABS: Lymphocytes # (M) 0.82 k/uL (1.0-4.8); Monocytes # (M) 0.43 k/uL (0-1.0); Neutrophils # (M) 1.15 k/uL (1.3-7.7); Neutrophils % (M) 48 %; Nucleated Red Blood Cells 0 /100 WBC (0-0); Total Cells Counted 100
[2017-03-19 10:36] LABS: Anisocytosis (M) Present
[2017-03-19 10:37] LABS: Poikilocytosis (M) Present
--- NOTE | 2017-03-19 11:14 | P.PN ---
Subjective Progress Note Date: 03/19/17 This is a 67-year-old female with a known history of COPD, alcohol abuse, hyperlipidemia and dementia. Patient reports over the last week she's had lower extremity edema. She's having difficulty with ambulating. He reports that it hurts to walk on them. She has multiple bruising and scabs on her legs. She does report following some times. No loss of consciousness. Her alcohol level was elevated at 113 on admission she's been placed on the CIWA protocol. Dopplers of the lower extremities completed which were negative for DVT. She was given 1 dose of IV Lasix. Chest x-ray showed no acute pulmonary disease did show a mid thoracic vertebral compression deformity of indeterminate age. Patient does report having thoracic spinal fractures. She was found to be hyponatremic with a sodium level CXVI and magnesium level 1.5. Telemetry monitoring showed possible atrial fibrillation with rapid ventricular response short episode with a heart rate of 158. Cardiology will be consulted. BNP level was in the 500s. Lactic acid level elevated admission at 3.3. Patient was given IV fluids. White count 2.6 hemoglobin 9.8 and platelets 140. She denies any chest pain or worsening shortness of breath. Denies any nausea or vomiting. Denies any difficulty or burning with urination. She reports that she always has chronic diarrhea. Stool for C. diff was ordered. This was negative. She patient is requesting to be restarted on her Imodium. Imodium has been ordered. 03/19/2017 patient went into atrial fibrillation with rapid ventricular response yesterday. She was started on Cardizem drip and Eliquis by cardiology. Patient 's lower extremity edema is slightly decreased from yesterday. She denies any chest pain or shortness of breath. Denies any nausea or vomiting. Denies any bowel movement changes or urinary symptoms. At time of discharge she is asking for a motorized wheelchair. Patient's been educated to work with physical therapy to see if we can have her ambulate. They will assess her for wheelchair Objective - Vital Signs Vital signs: Vital Signs Temp 98.0 F 03/19/17 08:00 Pulse 78 03/19/17 08:00 Resp 19 03/19/17 08:00 BP 102/54 03/19/17 08:00 Pulse Ox 97 03/19/17 08:00 Intake & Output 03/18/17 03/19/17 03/19/17 18:59 06:59 18:59 Intake Total 490 66.416 180 Balance 490 66.416 180 Weight 58.2 kg Intake: Intake, IV Titration 250 66.416 Amount Diltiazem 125 mg In 66.416 Sodium Chloride 0.9% 100 ml @ 10 MG/HR 10 mls/hr IV .[id number] [facility] Rx#: [id number] Sodium Chloride 0.9% 1, 250 000 ml @ 125 mls/hr IV . Q8H ONE Rx#:[id number] Oral 240 180 Other: Voiding Method Bedside Commode Bedside Commode Bedside Commode Incontinent # Voids 1 - Exam Head normocephalic Neck supple Lungs clear to auscultation bilaterally no wheezing or crackles Heart regular rate and rhythm S1-S2, no rub or gallop Abdomen is soft nontender nondistended positive bowel sounds no hepatosplenomegaly Extremities multiple scabs and bruising. +1 lower extremity edema Neuro alert and orientated to 3 - Labs CBC & Chem 7: 03/19/17 06:09 03/19/17 06:09 Labs: Abnormal Lab Results - Last 24 Hours (Table) 03/18/17 03/19/17 03/19/17 Range/Units 06:07 06:09 06:09 WBC 2.4 L (3.8-10.6) k/uL RBC 2.76 L (3.80-5.40) m/uL Hgb 9.3 L (11.4-16.0) gm/dL Hct 28.2 L (34.0-46.0) % MCV 102.2 H (80.0-100.0) fL Plt Count 146 L (150-450) k/uL Neutrophils # (Manual) 1.15 L (1.3-7.7) k/uL Lymphocytes # (Manual) 0.82 L (1.0-4.8) k/uL Sodium 124 L (137-145) mmol/L Potassium 3.2 L (3.5-5.1) mmol/L Chloride 89 L (98-107) mmol/L Carbon Dioxide 31 H (22-30) mmol/L BUN 3 L (7-17) mg/dL Creatinine 0.40 L (0.52-1.04) mg/dL TIBC 178 L (228-460) ug/dL Ferritin 547.4 H (10.0-291.0) ng/mL AST 54 H (14-36) U/L ALT 55 H (9-52) U/L Total Protein 4.6 L (6.3-8.2) g/dL Albumin 2.4 L (3.5-5.0) g/dL Microbiology - Last 24 Hours (Table) 03/17/17 21:26 Blood Culture - Preliminary Blood No Growth after 24 hours 03/17/17 20:30 Blood Culture - Preliminary Blood No Growth after 24 hours Assessment and Plan Assessment: 1. Bilateral lower extremity edema and pain with walking: Patient did receive 1 dose of IV Lasix in the emergency room. Chest x-ray showed no evidence of fluid overload. BNP was only 500. Venous Doppler was negative for DVT. Patient will be evaluated by cardiology. Patient also has severe protein calorie malnutrition. Which may be contributing to her edema. In short has been started 2. Atrial fibrillation with rapid ventricular response: Was started on Cardizem drip and Eliquis. She is converted back to sinus rhythm. Cardiology following 3. Hyponatremia: Likely secondary to her alcohol consumption of beer. Sodium level 116 on admission up to 124. Patient currently off of IV fluids. We'll place patient on fluid restrictions 1500ml per day 4. Alcohol intoxication present on admission with elevated alcohol level on admission. Patient placed on the CIWA protocol. Continue thiamine and multivitamin 5. Hypomagnesemia. Patient receiving magnesium supplement. 6. Elevated LFTs likely related to patient's alcohol consumption. Denies any abdominal pain. 7. Lactic acid elevated on admission improving with IV fluids. 8. History of COPD stable 9. Multiple scabs on patient's legs. Continue with Rocephin 10. Leukopenia likely related to patient's alcohol abuse. Continue to monitor 11. Anemia could be related to malnutrition as well as IV fluids. Continue to monitor. No active bleeding. Iron normal at 63 with a B12 and folate levels normal 12. Hypokalemia patient receiving potassium supplement consult PT OT I performed an examination of the patient and discussed their management with the physician Medicaid Specialist. I have reviewed the Physician Medicaid Specialist's notes and agree with the documented findings and plan of care
[2017-03-19] MEDS: MULTIVITAMINS, THERA 1 EACH TAB PO SCH (11:31)
[2017-03-19] MEDS: cefTRIAXone IN SWFI 1,000 MG/10 ML SYRINGE IVP SCH (11:31)
[2017-03-19] MEDS: THIAMINE 100 MG TAB PO SCH ×2 (11:31→17:15)
--- NOTE | 2017-03-19 12:48 | ECHOF ---
Referral Reason:afib MEASUREMENTS -------- HEIGHT: 132.1 cm WEIGHT: 57.6 kg BP: 106/59 IVSd: 1.2 cm (0.6 - 1.1) LVIDd: 4.8 cm (3.9 - 5.3) LVPWd: 0.8 cm (0.6 - 1.1) IVSs: 1.7 cm LVIDs: 3.2 cm LVPWs: 1.0 cm LA Diam: 3.5 cm (2.7 - 3.8) LAESV Index (A-L): 57.82 ml/m Ao Diam: 3.2 cm (2.0 - 3.7) AV Cusp: 2.0 cm (1.5 - 2.6) LA Diam: 3.7 cm (2.7 - 3.8) MV EXCURSION: 16.659 mm (> 18.000) MV EF SLOPE: 71 mm/s (70 - 150) EPSS: 0.8 cm MV E Aram: 0.46 m/s MV DecT: 250 ms MV A Aram: 0.76 m/s MV E/A Ratio: 0.61 AR PHT: 390 ms RAP: 5.00 mmHg RVSP: 37.00 mmHg FINDINGS -------- Sinus rhythm. This was a technically adequate study. The left ventricular size is normal. There is mild concentric left ventricular hypertrophy. Overa ll left ventricular systolic function is normal with, an EF between 55 - 60 %. The right ventricle is normal in size. LA is severely dilated >40 ml/m2 The right atrial size is normal. There is mild aortic valve sclerosis. There is [id number] aortic regurgitation. Mild mitral annular calcification present. Mild mitral regurgitation is present. Mild tricuspid regurgitation present. There is mild pulmonary hypertension. The right ventricular systolic pressure, as measured by Doppler, is 37.00mmHg. Trace/mild (physiologic) pulmonic regurgitation. The aortic root size is normal. There is no pericardial effusion. CONCLUSIONS -------- 1. Sinus rhythm. 2. This was a technically adequate study. 3. The left ventricular size is normal. 4. There is mild concentric left ventricular hypertrophy. 5. Overall left ventricular systolic function is normal with, an EF between 55 - 60 %. 6. LA is severely dilated >40 ml/m2 7. There is mild aortic valve sclerosis. 8. There is [id number] aortic regurgitation. 9. Mild mitral annular calcification present. 10. Mild mitral regurgitation is present. 11. Mild tricuspid regurgitation present. 12. There is mild pulmonary hypertension. 13. Trace/mild (physiologic) pulmonic regurgitation. 14. The aortic root size is normal. 15. There is no pericardial effusion. CASTINGS DRAFTER: Haydee San RDCS
--- NOTE | 2017-03-19 15:13 | P.CRDCN ---
History of Present Illness Consult date: 03/19/17 Requesting physician: Mariela Sosa Reason for Consult (text): Afib Chief complaint: lower extremity edema History of present illness: This is a pleasant 67-year-old female patient with history of COPD, hyperlipidemia, dementia, is a current smoker and admits to drinking at least 2 beers every day. She presented to the emergency department mostly with complaints of lower extremity edema causing difficulty walking. She also had complaints of some generalized weakness. Chest x-ray on admission showed no acute cardiopulmonary process. Initial EKG shows normal sinus rhythm with subsequent EKG showing atrial fibrillation with rapid ventricular response. Venous Doppler study was negative for DVT. Labs show up NT proBNP of 541, troponin less than 0.012. Upon arrival sodium of 116, this morning 124. BUN of 3 and creatinine of 0.4 with 0. She also has elevated AST, a LT and alkaline phosphatase. Serum alcohol was 113 on admission. Upon examination, patient is resting comfortably in bed. She denies worsening shortness of breath from her baseline. She is feeling quite a bit better. She denies complaints of chest discomfort or palpitations. She denies complaints of dizziness, lightheadedness or syncope. She does admit to having multiple falls last month, at least 6. Past Medical History Past Medical History: Asthma, COPD, Dementia, Hearing Disorder / Deafness, Hyperlipidemia, Memory Impairment, Osteoarthritis (OA), Rheumatoid Arthritis (RA ) Additional Past Medical History / Comment(s): osteoporosis, left wrist and shoulder Fx, multiple upper and Lower back fractures History of Any Multi-Drug Resistant Organisms: None Reported Past Surgical History: Section, Tonsillectomy Additional Past Surgical History / Comment(s): bilateral cataract surgery Past Anesthesia/Blood Transfusion Reactions: No Reported Reaction Smoking Status: Former smoker - Past Family History Father Family Medical History: No Reported History Mother Family Medical History: No Reported History Medications and Allergies Home Medications Medication Instructions Recorded Confirmed Type HYDROcodone/APAP 5-325MG [[place] 1 tab PO RT-BID PRN 06/03/16 03/17/17 History 5-325] Ibuprofen 400 - 800 mg PO Q6H PRN 03/17/17 03/17/17 History Allergies Allergy/AdvReac Type Severity Reaction Status Date / Time No Known Allergies Allergy Verified 03/17/17 13:48 Physical Exam Vitals: Vital Signs Temp Pulse Resp BP Pulse Ox 03/19/17 12:00 78 19 03/19/17 11:27 96.9 F L 78 19 107/57 98 03/19/17 08:00 98.0 F 78 19 102/54 97 03/19/17 04:20 98.1 F 63 19 106/59 97 03/19/17 04:00 86 20 03/19/17 00:00 97.8 F 86 19 112/59 100 03/18/17 20:25 97.4 F L 85 20 85/50 99 03/18/17 15:49 98.2 F 78 18 101/65 99 Intake and Output 03/18/17 03/19/17 03/19/17 22:59 06:59 14:59 Intake Total 490 66.416 180 Balance 490 66.416 180 Intake: Intake, IV Titration 250 66.416 Amount Diltiazem 125 mg In 66.416 Sodium Chloride 0.9% 100 ml @ 10 MG/HR 10 mls/hr IV .[id number] [facility] Rx#: [id number] Sodium Chloride 0.9% 1, 250 000 ml @ 125 mls/hr IV . Q8H ONE Rx#:[id number] Oral 240 180 Other: Voiding Method Bedside Commode Bedside Commode Bedside Commode Incontinent # Voids 1 Weight 58.2 kg PHYSICAL EXAMINATION: HEENT: Head is atraumatic, normocephalic. Pupils equal, round. Neck is supple. There is no elevated jugular venous pressure. HEART EXAMINATION: Heart sounds regular, S1 and S2 normal. No murmur or gallop heard. CHEST EXAMINATION: Lungs reveal diminished air entry bilaterally. No chest wall tenderness is noted on palpation or with deep breathing. ABDOMEN: Soft, nontender. Bowel sounds are heard. No organomegaly noted. EXTREMITIES: 2+ peripheral pulses with evidence of trace peripheral edema and no calf tenderness noted. Multiple wounds noted to bilateral lower legs. NEUROLOGIC patient is awake, alert and oriented x3. . Results 03/19/17 06:09 03/19/17 06:09 Cardiac Enzymes 03/19/17 Range/Units 06:09 AST 54 H (14-36) U/L CBC 03/19/17 Range/Units 06:09 WBC 2.4 L (3.8-10.6) k/uL RBC 2.76 L (3.80-5.40) m/uL Hgb 9.3 L (11.4-16.0) gm/dL Hct 28.2 L (34.0-46.0) % Plt Count 146 L (150-450) k/uL Comprehensive Metabolic Panel 03/19/17 Range/Units 06:09 Sodium 124 L (137-145) mmol/L Potassium 3.2 L (3.5-5.1) mmol/L Chloride 89 L (98-107) mmol/L Carbon Dioxide 31 H (22-30) mmol/L BUN 3 L (7-17) mg/dL Creatinine 0.40 L (0.52-1.04) mg/dL Glucose 99 (74-99) mg/dL Calcium 8.6 (8.4-10.2) mg/dL AST 54 H (14-36) U/L ALT 55 H (9-52) U/L Alkaline Phosphatase 111 (38-126) U/L Total Protein 4.6 L (6.3-8.2) g/dL Albumin 2.4 L (3.5-5.0) g/dL Current Medications Generic Name Dose Route Start Last Admin Trade Name Freq PRN Reason Stop Dose Admin Hydrocodone Bitart/Acetaminophen 1 each 03/17/17 21:00 03/18/17 21:38 [place] 5-325 PO 1 each BID PRN Administration Moderate to Severe Pain Apixaban 5 mg 03/18/17 21:00 03/19/17 10:34 Eliquis PO 5 mg BID CARMINE Administration Ceftriaxone Sodium 1,000 mg 03/17/17 21:00 03/19/17 11:31 Rocephin IVP 1,000 mg Q24HR CARMINE Administration Ibuprofen 800 mg 03/17/17 18:12 Motrin PO Q6H PRN Pain Loperamide HCl 2 mg 03/18/17 13:18 03/18/17 21:38 Imodium PO 2 mg QID PRN Administration Diarrhea Lorazepam 1 mg 03/17/17 16:01 Ativan IV Q2HR PRN CIWA 8 or 9 Lorazepam 1 mg 03/17/17 16:01 Ativan IV Q1HR PRN CIWA 10 to 15 Lorazepam 2 mg 03/17/17 16:01 Ativan IV 03/19/17 16:01 Q10M PRN CIWA 16 or higher Multivitamins 1 each 03/19/17 12:00 03/19/17 11:31 Theragran PO 1 each DAILY@1200 CARMINE Administration Thiamine HCl 100 mg 03/17/17 17:00 03/19/17 11:31 Vitamin B-1 PO 100 mg BID@1200,1700 CARMINE Administration Intake and Output 03/18/17 03/19/17 03/19/17 22:59 06:59 14:59 Intake Total 490 66.416 180 Balance 490 66.416 180 Intake: Intake, IV Titration 250 66.416 Amount Diltiazem 125 mg In 66.416 Sodium Chloride 0.9% 100 ml @ 10 MG/HR 10 mls/hr IV .[id number] [facility] Rx#: [id number] Sodium Chloride 0.9% 1, 250 000 ml @ 125 mls/hr IV . Q8H ONE Rx#:[id number] Oral 240 180 Other: Voiding Method Bedside Commode Bedside Commode Bedside Commode Incontinent # Voids 1 Weight 58.2 kg 03/19/17 06:09 03/19/17 06:09 EKG Interpretations (text) Initially showed normal sinus rhythm with subsequent EKG showing atrial fibrillation with rapid ventricular response Assessment and Plan Assessment: #1 bilateral lower extremity edema #2 new-onset paroxysmal atrial fibrillation with rapid ventricular response #3 hyponatremia #4 alcohol abuse #5 history of multiple falls in the past #6 hypomagnesemia #7 history of COPD #8 anemia Plan: From cardiology perspective, we will obtain a 2-D echo with Doppler. Due to patient's poor mobility, alcohol abuse and frequent falls, patient may not be a good candidate for anticoagulation. We would recommend aspirin only at this time. Further recommendations to follow. TICKER INSTALLER note has been reviewed, I agree with a documented findings and plan of care. Patient was seen and examined.
--- NOTE | 2017-03-19 15:49 | P.CONS ---
History of Present Illness - Chief Complaint Medical debility - History of Present Illness I had the opportunity to see patient for inpatient rehab consultation with regard to medical debility. She was admitted to [facility] March 17 with lower extremity edema and difficulty ambulation. Seen by cardiology who notes to onset. Symmetric ablation with rapid ventricular response. Lower extremity Doppler negative for DVT either leg. Chest x-ray with no active disease but admitted to spine compression. PT reports minimal assistance for transfers and gait 75 feet with roller walker. OT reports supervision for upper/lower dressing, bathing, functional mobility. Minimal assistance for toileting. Previous functional history as elicited from patient: 67-year-old right-handed / white female who lives in [place], alone. Retired. Describes a friend assist with cooking the patient can do some simple cooking as well as independent with sitdown shower and gait with standard cane. Does not drive. His student financial services counselor on aging for laundry. Reports that she has a nephew who can move in with her for a week. History smoking but quit 6 years ago. It at least [address] rachel jar his regular doctor. Family history of cardiac disease and coronary surgery in father. Review of Systems Review of systems: ENT: Denies sneezes or discharge. Eyes: Denies discharge or photophobia. Cardiac: Denies chest pain or palpitation. Pulmonary: Denies cough or shortness of breath. Breast: Denies discharge or lumps. Gastrointestinal: Denies nausea, emesis, constipation, diarrhea. Genitourinary: Denies discharge or frequency. Musculoskeletal: Denies muscle or bone aches. Lower extremity edema much improved. Still with skin lesions on forelegs. Neurologic: Denies motor or sensory change. Endocrine: Denies shakes or sweats. Oncology: Denies cancers. Dermatologic: Denies rash, itching, pruritus. ALLERGY/immunology: Denies sneezes, rashes. Past Medical History Past Medical History: Asthma, COPD, Dementia, Hearing Disorder / Deafness, Hyperlipidemia, Memory Impairment, Osteoarthritis (OA), Rheumatoid Arthritis (RA ) Additional Past Medical History / Comment(s): osteoporosis, left wrist and shoulder Fx, multiple upper and Lower back fractures History of Any Multi-Drug Resistant Organisms: None Reported Past Surgical History: Section, Tonsillectomy Additional Past Surgical History / Comment(s): bilateral cataract surgery Past Anesthesia/Blood Transfusion Reactions: No Reported Reaction Smoking Status: Former smoker - Past Family History Father Family Medical History: No Reported History Mother Family Medical History: No Reported History Medications and Allergies Home Medications Medication Instructions Recorded Confirmed Type HYDROcodone/APAP 5-325MG [[place] 1 tab PO RT-BID PRN 06/03/16 03/17/17 History 5-325] Ibuprofen 400 - 800 mg PO Q6H PRN 03/17/17 03/17/17 History Allergies Allergy/AdvReac Type Severity Reaction Status Date / Time No Known Allergies Allergy Verified 03/17/17 13:48 Physical Exam Vitals: Vital Signs Temp Pulse Resp BP Pulse Ox 03/19/17 12:00 78 19 03/19/17 11:27 96.9 F L 78 19 107/57 98 03/19/17 08:00 98.0 F 78 19 102/54 97 03/19/17 04:20 98.1 F 63 19 106/59 97 03/19/17 04:00 86 20 03/19/17 00:00 97.8 F 86 19 112/59 100 03/18/17 20:25 97.4 F L 85 20 85/50 99 03/18/17 15:49 98.2 F 78 18 101/65 99 Intake and Output 03/19/17 03/19/17 03/19/17 06:59 14:59 22:59 Intake Total 66.416 180 180 Output Total 800 Balance 66.416 180 -620 Intake: Intake, IV Titration 66.416 Amount Diltiazem 125 mg In 66.416 Sodium Chloride 0.9% 100 ml @ 10 MG/HR 10 mls/hr IV .[id number] [facility] Rx#: [id number] Oral 180 180 Output: Urine 800 Other: Voiding Method Bedside Commode Bedside Commode # Voids 1 Weight 58.2 kg Skin: Atrophic. Multiple bruises and scabs noted forelegs, friable. General: Medium build and comfortable appearance. Head: Normocephalic, atraumatic. Eyes: Symmetric. Pupils equal round. Ears: Symmetric. Hearing within normal limits. Mouth: Clear. Neck: Supple. Carotid without bruit. Cardiac: Regular rate and rhythm. Lungs: Clear anteriorly and posteriorly. Abdomen: Soft active nontender. Extremities: Normal tone. Neurological: Mental status: Alert, cooperative, pleasant. Cranial nerves: Symmetric facial tone and trapezius. Motor: Good active movement arms but less than antigravity in legs. Sensation: Intact throughout. DTRs: Symmetric and equal throughout. Mobility: Would require at least minimal assistance to sit and stand. Results CBC & Chem 7: 03/19/17 06:09 03/19/17 06:09 Labs: Abnormal Lab Results - Last 24 Hours (Table) 03/18/17 03/19/17 03/19/17 Range/Units 06:07 06:09 06:09 WBC 2.4 L (3.8-10.6) k/uL RBC 2.76 L (3.80-5.40) m/uL Hgb 9.3 L (11.4-16.0) gm/dL Hct 28.2 L (34.0-46.0) % MCV 102.2 H (80.0-100.0) fL Plt Count 146 L (150-450) k/uL Neutrophils # (Manual) 1.15 L (1.3-7.7) k/uL Lymphocytes # (Manual) 0.82 L (1.0-4.8) k/uL Sodium 124 L (137-145) mmol/L Potassium 3.2 L (3.5-5.1) mmol/L Chloride 89 L (98-107) mmol/L Carbon Dioxide 31 H (22-30) mmol/L BUN 3 L (7-17) mg/dL Creatinine 0.40 L (0.52-1.04) mg/dL TIBC 178 L (228-460) ug/dL Ferritin 547.4 H (10.0-291.0) ng/mL AST 54 H (14-36) U/L ALT 55 H (9-52) U/L Total Protein 4.6 L (6.3-8.2) g/dL Albumin 2.4 L (3.5-5.0) g/dL Microbiology - Last 24 Hours (Table) 03/17/17 21:26 Blood Culture - Preliminary Blood No Growth after 24 hours 03/17/17 20:30 Blood Culture - Preliminary Blood No Growth after 24 hours Chest x-ray: report reviewed (Negative. Compression noted midthoracic spine.) Venous US: report reviewed (Negative for DVT either leg.) Assessment and Plan (1) Alcohol intoxication Current Visit: Yes Status: Acute Code(s): F10.929 - ALCOHOL USE, UNSPECIFIED WITH INTOXICATION, UNSPECIFIED SNOMED Code(s): 12780520 Plan: Impression: 1. Walking difficulty with fall. 2. Lower extremity edema, resolving. 3. Lower extremity skin issues. 4. New onset paroxysmal atrophy fibrillation with rapid ventricular response. 5. Alcohol intoxication. 6. Asthma. 7. Dementia with memory impairment. 8. Deafness. 9. Rheumatoid and osteoarthritis. Comments and plan: PT and OT are ongoing and safety concerns noted currently. Patient's preference is to stay here 1 week and go home by and of next week, with support services. Have discussed that I'm here for possible need of further therapy beyond a normal or routine medical stay. I will review patient' s progress, Wednesday a.m. and make further recommendation.
[2017-03-19] MEDS: HYDROcodone/APAP 5-325MG 1 EACH TAB PO PRN (21:42)
[2017-03-20 07:00] LABS: HGB 9.1 gm/dL (11.4-16.0); MCHC 32.3 g/dL (31.0-37.0); Macrocytosis Slight; Mean Platelet Volume 7.3; Platelet Count 140 k/uL (150-450); RBC 2.75 m/uL (3.80-5.40); RDW 13.4 % (11.5-15.5); WBC 2.6 k/uL (3.8-10.6)
[2017-03-20 07:09] LABS: ALT 47 U/L (9-52); AST 54 U/L (14-36); Albumin 2.5 g/dL (3.5-5.0); Alkaline Phosphatase 109 U/L (38-126); Anion Gap 4 mmol/L; Blood Urea Nitrogen 3 mg/dL (7-17); Carbon Dioxide 29 mmol/L (22-30); Chloride 94 mmol/L (98-107); Glucose 89 mg/dL (74-99); Magnesium 1.6 mg/dL (1.6-2.3); Potassium 3.8 mmol/L (3.5-5.1); Sodium 127 mmol/L (137-145); Total Bilirubin 0.5 mg/dL (0.2-1.3); Total Protein 4.7 g/dL (6.3-8.2)
--- NOTE | 2017-03-20 08:29 | P.PN ---
Subjective Progress Note Date: 03/20/17 This is a 67-year-old female with a known history of COPD, alcohol abuse, hyperlipidemia and dementia. Patient reports over the last week she's had lower extremity edema. She's having difficulty with ambulating. He reports that it hurts to walk on them. She has multiple bruising and scabs on her legs. She does report following some times. No loss of consciousness. Her alcohol level was elevated at 113 on admission she's been placed on the CIWA protocol. Dopplers of the lower extremities completed which were negative for DVT. She was given 1 dose of IV Lasix. Chest x-ray showed no acute pulmonary disease did show a mid thoracic vertebral compression deformity of indeterminate age. Patient does report having thoracic spinal fractures. She was found to be hyponatremic with a sodium level CXVI and magnesium level 1.5. Telemetry monitoring showed possible atrial fibrillation with rapid ventricular response short episode with a heart rate of 158. Cardiology will be consulted. BNP level was in the 500s. Lactic acid level elevated admission at 3.3. Patient was given IV fluids. White count 2.6 hemoglobin 9.8 and platelets 140. She denies any chest pain or worsening shortness of breath. Denies any nausea or vomiting. Denies any difficulty or burning with urination. She reports that she always has chronic diarrhea. Stool for C. diff was ordered. This was negative. She patient is requesting to be restarted on her Imodium. Imodium has been ordered. 03/19/2017 patient went into atrial fibrillation with rapid ventricular response yesterday. She was started on Cardizem drip and Eliquis by cardiology. Patient 's lower extremity edema is slightly decreased from yesterday. She denies any chest pain or shortness of breath. Denies any nausea or vomiting. Denies any bowel movement changes or urinary symptoms. At time of discharge she is asking for a motorized wheelchair. Patient's been educated to work with physical therapy to see if we can have her ambulate. They will assess her for wheelchair. On 03/20/2017 patient is alert and oriented 3 in no apparent distress she denies any fever or chills no headache or dizziness no chest pain or shortness of breath she has occasional cough no nausea or vomiting no abdominal pain no urinary symptoms. Patient is in atrial fibrillation heart rate is still around 100, she was started on physical therapy and occupational therapy consultation for Dr. Morgan for possible rehab admission was initiated, sodium is improving but is still low at 127, lower extremity swelling improved significantly, patient still has significant hypoalbuminemia. Objective - Vital Signs Vital signs: Vital Signs Temp 97.3 F L 03/20/17 04:00 Pulse 85 03/20/17 04:00 Resp 18 03/20/17 04:00 BP 156/73 03/20/17 04:00 Pulse Ox 97 03/20/17 04:00 Intake & Output 03/19/17 03/20/17 03/20/17 18:59 06:59 18:59 Intake Total 360 240 300 Output Total 800 300 Balance -440 -60 300 Weight 57.8 kg Intake: Oral 360 240 300 Output: Urine 800 300 Other: Voiding Method Bedside Commode Bedside Commode # Voids 1 # Bowel Movements 1 - Exam Head normocephalic and atraumatic Neck supple, no JVD no goiter no lymphadenopathy Lungs clear to auscultation bilaterally no wheezing or crackles Heart regular rate and rhythm S1-S2, no rub or gallop Abdomen is soft nontender nondistended positive bowel sounds no hepatosplenomegaly Extremities multiple scabs and bruising. +1 lower extremity edema Neuro alert and orientated to 3, no gross focal deficit - Labs CBC & Chem 7: 03/20/17 06:15 03/20/17 06:15 Labs: Abnormal Lab Results - Last 24 Hours (Table) 03/19/17 03/20/17 03/20/17 Range/Units 06:09 06:15 06:15 WBC 2.6 L (3.8-10.6) k/uL RBC 2.75 L (3.80-5.40) m/uL Hgb 9.1 L (11.4-16.0) gm/dL Hct 28.0 L (34.0-46.0) % MCV 102.0 H (80.0-100.0) fL Plt Count 140 L (150-450) k/uL Neutrophils # (Manual) 1.15 L (1.3-7.7) k/uL Lymphocytes # (Manual) 0.82 L (1.0-4.8) k/uL Sodium 127 L (137-145) mmol/L Chloride 94 L (98-107) mmol/L BUN 3 L (7-17) mg/dL Creatinine 0.40 L (0.52-1.04) mg/dL AST 54 H (14-36) U/L Total Protein 4.7 L (6.3-8.2) g/dL Albumin 2.5 L (3.5-5.0) g/dL Microbiology - Last 24 Hours (Table) 03/17/17 21:26 Blood Culture - Preliminary Blood No Growth after 48 hours 03/17/17 20:30 Blood Culture - Preliminary Blood No Growth after 48 hours Assessment and Plan Plan: 1. Bilateral lower extremity edema and pain with walking: Patient did receive 1 dose of IV Lasix in the emergency room. Chest x-ray showed no evidence of fluid overload. BNP was only 500. Venous Doppler was negative for DVT. Patient will be evaluated by cardiology. Patient also has severe protein calorie malnutrition. Which may be contributing to her edema. Ensure has been started 2. Atrial fibrillation with rapid ventricular response: Was started on Cardizem drip and Eliquis. She is converted back to sinus rhythm. Cardiology following 3. Hyponatremia: Likely secondary to her alcohol consumption of beer. Sodium level 116 on admission up to 124. Patient currently off of IV fluids. We'll place patient on fluid restrictions 1500ml per day 4. Alcohol intoxication present on admission with elevated alcohol level on admission. Patient placed on the CIWA protocol. Continue thiamine and multivitamin 5. Hypomagnesemia. Patient receiving magnesium supplement. 6. Elevated LFTs likely related to patient's alcohol consumption. Denies any abdominal pain. 7. Lactic acid elevated on admission improving with IV fluids. 8. History of COPD stable 9. Multiple scabs on patient's legs. Continue with Rocephin 10. Leukopenia likely related to patient's alcohol abuse. Continue to monitor 11. Anemia could be related to malnutrition as well as IV fluids. Continue to monitor. No active bleeding. Iron normal at 63 with a B12 and folate levels normal 12. Hypokalemia patient receiving potassium supplement consult PT OT Consultation for Dr. Gibbs was initiated for possible rehab admission
[2017-03-20] MEDS: cefTRIAXone IN SWFI 1,000 MG/10 ML SYRINGE IVP SCH (08:47)
[2017-03-20] MEDS: APIXABAN 5 MG TAB PO SCH ×2 (08:47→20:08)
[2017-03-20] MEDS: HYDROcodone/APAP 5-325MG 1 EACH TAB PO PRN ×2 (09:02→17:59)
[2017-03-20] MEDS: LOPERAMIDE 2 MG CAP PO PRN ×2 (11:09→23:56)
[2017-03-20 11:15] LABS: Band Neutrophils % 2 %; Basophils # (M) 0.03 k/uL (0-0.2); Eosinophils # (M) 0.05 k/uL (0-0.7); Monocytes # (M) 0.29 k/uL (0-1.0); Neutrophils % (M) 61 %; Nucleated Red Blood Cells 0 /100 WBC (0-0); Total Cells Counted 100
[2017-03-20 11:20] VITALS: BMI 25.7
--- NOTE | 2017-03-20 14:12 | P.PN ---
Subjective Progress Note Date: 03/27/17 This 67-year-old female was admitted with the edema and also shortness of breath and weakness. Her chest x-ray did not reveal any evidence of CHF. Her BNP level was within normal limits. Patient responded to IV diuretics. It is felt that the edema could be related to hyponatremia and anemia. Patient is being evaluated to go to rehab center. Cardec was otherwise patient is stable Objective - Vital Signs Vital signs: Vital Signs Temp 97.0 F L 03/20/17 08:00 Pulse 80 03/20/17 08:00 Resp 20 03/20/17 08:00 BP 146/80 03/20/17 08:00 Pulse Ox 95 03/20/17 08:00 Intake & Output 03/19/17 03/20/17 03/20/17 18:59 06:59 18:59 Intake Total 360 240 300 Output Total 800 300 Balance -440 -60 300 Weight 57.8 kg 57.8 kg Intake: Oral 360 240 300 Output: Urine 800 300 Other: Voiding Method Bedside Commode Bedside Commode # Voids 1 # Bowel Movements 1 - Exam GENERAL EXAM: Patient is alert and oriented and doesn't appear to be in any acute distress HEENT: Normocephalic. Normal reaction of pupils, equal size, normal range of extraocular motion. No erythema or exudates in the throat. NECK: No masses, no nuchal rigidity. CHEST: No chest wall deformity. LUNGS: Equal air entry with no crackles or wheeze. HEART: S1 and S2 normal with no audible mumurs or gallops. Regular rhythm, femorals equal on both sides.. ABDOMEN: No hepatosplenomegaly, normal bowel sounds, no guarding or rigidity. SKIN: No rashes CENTRAL NERVOUS SYSTEM: No focal deficits. EXTREMITIES: Resolving edema - Labs CBC & Chem 7: 03/20/17 06:15 03/20/17 06:15 Labs: Abnormal Lab Results - Last 24 Hours (Table) 03/20/17 03/20/17 Range/Units 06:15 06:15 WBC 2.6 L (3.8-10.6) k/uL RBC 2.75 L (3.80-5.40) m/uL Hgb 9.1 L (11.4-16.0) gm/dL Hct 28.0 L (34.0-46.0) % MCV 102.0 H (80.0-100.0) fL Plt Count 140 L (150-450) k/uL Lymphocytes # (Manual) 0.60 L (1.0-4.8) k/uL Sodium 127 L (137-145) mmol/L Chloride 94 L (98-107) mmol/L BUN 3 L (7-17) mg/dL Creatinine 0.40 L (0.52-1.04) mg/dL AST 54 H (14-36) U/L Total Protein 4.7 L (6.3-8.2) g/dL Albumin 2.5 L (3.5-5.0) g/dL Microbiology - Last 24 Hours (Table) 03/17/17 21:26 Blood Culture - Preliminary Blood No Growth after 48 hours 03/17/17 20:30 Blood Culture - Preliminary Blood No Growth after 48 hours Assessment and Plan (1) Edema Current Visit: Yes Status: Acute Code(s): R60.9 - EDEMA, UNSPECIFIED SNOMED Code(s): 199437897 (2) Hyponatremia Current Visit: Yes Status: Acute Code(s): E87.1 - HYPO-OSMOLALITY AND HYPONATREMIA SNOMED Code(s): 01088299 (3) Hypoalbuminemia Current Visit: Yes Status: Acute Code(s): E88.09 - OTH DISORDERS OF PLASMA- PROTEIN METABOLISM, NEC SNOMED Code(s): 328471220 Plan: Patient seemed to be clinically stable. She is being evaluated for inpatient rehabilitation. Continue current medical therapy. We'll follow as needed
[2017-03-20] MEDS: MULTIVITAMINS, THERA 1 EACH TAB PO SCH (16:48)
[2017-03-20] MEDS: THIAMINE 100 MG TAB PO SCH ×2 (16:48→17:54)
[2017-03-21 07:07] LABS: HGB 10.3 gm/dL (11.4-16.0); MCH 32.5 pg (25.0-35.0); MCHC 30.4 g/dL (31.0-37.0); MCV 106.8 fL (80.0-100.0); Macrocytosis Moderate; Mean Platelet Volume 7.5; Platelet Count 159 k/uL (150-450); RBC 3.18 m/uL (3.80-5.40); RDW 13.3 % (11.5-15.5)
[2017-03-21 07:35] LABS: ALT 58 U/L (9-52); AST 59 U/L (14-36); Albumin 3.3 g/dL (3.5-5.0); Alkaline Phosphatase 147 U/L (38-126); Anion Gap 8 mmol/L; Blood Urea Nitrogen 3 mg/dL (7-17); Calcium 9.7 mg/dL (8.4-10.2); Carbon Dioxide 29 mmol/L (22-30); Chloride 92 mmol/L (98-107); Glucose 79 mg/dL (74-99); Sodium 129 mmol/L (137-145); Total Bilirubin 0.8 mg/dL (0.2-1.3); Total Protein 6.1 g/dL (6.3-8.2)
[2017-03-21] MEDS: APIXABAN 5 MG TAB PO SCH ×2 (08:22→20:57)
[2017-03-21] MEDS: cefTRIAXone IN SWFI 1,000 MG/10 ML SYRINGE IVP SCH (08:22)
--- NOTE | 2017-03-21 09:16 | P.PN ---
Subjective Progress Note Date: 03/21/17 This is a 67-year-old female with a known history of COPD, alcohol abuse, hyperlipidemia and dementia. Patient reports over the last week she's had lower extremity edema. She's having difficulty with ambulating. He reports that it hurts to walk on them. She has multiple bruising and scabs on her legs. She does report following some times. No loss of consciousness. Her alcohol level was elevated at 113 on admission she's been placed on the CIWA protocol. Dopplers of the lower extremities completed which were negative for DVT. She was given 1 dose of IV Lasix. Chest x-ray showed no acute pulmonary disease did show a mid thoracic vertebral compression deformity of indeterminate age. Patient does report having thoracic spinal fractures. She was found to be hyponatremic with a sodium level CXVI and magnesium level 1.5. Telemetry monitoring showed possible atrial fibrillation with rapid ventricular response short episode with a heart rate of 158. Cardiology will be consulted. BNP level was in the 500s. Lactic acid level elevated admission at 3.3. Patient was given IV fluids. White count 2.6 hemoglobin 9.8 and platelets 140. She denies any chest pain or worsening shortness of breath. Denies any nausea or vomiting. Denies any difficulty or burning with urination. She reports that she always has chronic diarrhea. Stool for C. diff was ordered. This was negative. She patient is requesting to be restarted on her Imodium. Imodium has been ordered. 03/19/2017 patient went into atrial fibrillation with rapid ventricular response yesterday. She was started on Cardizem drip and Eliquis by cardiology. Patient 's lower extremity edema is slightly decreased from yesterday. She denies any chest pain or shortness of breath. Denies any nausea or vomiting. Denies any bowel movement changes or urinary symptoms. At time of discharge she is asking for a motorized wheelchair. Patient's been educated to work with physical therapy to see if we can have her ambulate. They will assess her for wheelchair. On 03/20/2017 patient is alert and oriented 3 in no apparent distress she denies any fever or chills no headache or dizziness no chest pain or shortness of breath she has occasional cough no nausea or vomiting no abdominal pain no urinary symptoms. Patient is in atrial fibrillation heart rate is still around 100, she was started on physical therapy and occupational therapy consultation for Dr. Morgan for possible rehab admission was initiated, sodium is improving but is still low at 127, lower extremity swelling improved significantly, patient still has significant hypoalbuminemia. On 03/21/2017 patient is stable, resting comfortably in bed, she denies any fever or chills no headache or dizziness no chest pain or shortness of breath, no cough no nausea or vomiting no abdominal pain and no urinary symptoms. Patient is in Normal sinus rhythm at this time, she was in atrial fibrillation yesterday. she was started on physical therapy and occupational therapy consultation for Dr. Morgan for possible rehab admission was initiated, sodium is improving but is still low at 129, lower extremity swelling improved significantly. Objective - Vital Signs Vital signs: Vital Signs Temp 98.1 F 03/21/17 08:50 Pulse 82 03/21/17 08:50 Resp 18 03/21/17 08:50 BP 110/58 03/21/17 08:50 Pulse Ox 100 03/21/17 08:50 Intake & Output 03/20/17 03/21/17 03/21/17 18:59 06:59 18:59 Intake Total 618 125 Balance 618 125 Weight 57.8 kg 56.8 kg Intake: Oral 618 125 Other: Voiding Method Bedside Commode # Voids 2 3 # Bowel Movements 1 - Exam Head normocephalic and atraumatic Neck supple, no JVD no goiter no lymphadenopathy Lungs clear to auscultation bilaterally no wheezing or crackles Heart regular rate and rhythm S1-S2, no rub or gallop Abdomen is soft nontender nondistended positive bowel sounds no hepatosplenomegaly Extremities multiple scabs and bruising. +1 lower extremity edema Neuro alert and orientated to 3, no gross focal deficit - Labs CBC & Chem 7: 03/21/17 06:31 03/21/17 06:31 Labs: Abnormal Lab Results - Last 24 Hours (Table) 03/20/17 03/21/17 03/21/17 Range/Units 06:15 06:31 06:31 WBC 3.0 L (3.8-10.6) k/uL RBC 3.18 L (3.80-5.40) m/uL Hgb 10.3 L (11.4-16.0) gm/dL MCV 106.8 H (80.0-100.0) fL MCHC 30.4 L (31.0-37.0) g/dL Lymphocytes # (Manual) 0.60 L (1.0-4.8) k/uL Sodium 129 L (137-145) mmol/L Chloride 92 L (98-107) mmol/L BUN 3 L (7-17) mg/dL Creatinine 0.44 L (0.52-1.04) mg/dL AST 59 H (14-36) U/L ALT 58 H (9-52) U/L Alkaline Phosphatase 147 H (38-126) U/L Total Protein 6.1 L (6.3-8.2) g/dL Albumin 3.3 L (3.5-5.0) g/dL Microbiology - Last 24 Hours (Table) 03/17/17 21:26 Blood Culture - Preliminary Blood No Growth after 72 hours 03/17/17 20:30 Blood Culture - Preliminary Blood No Growth after 72 hours Assessment and Plan Plan: 1. Bilateral lower extremity edema and pain with walking: Patient did receive 1 dose of IV Lasix in the emergency room. Chest x-ray showed no evidence of fluid overload. BNP was only 500. Venous Doppler was negative for DVT. Patient will be evaluated by cardiology. Patient also has severe protein calorie malnutrition. Which may be contributing to her edema. Ensure has been started 2. Atrial fibrillation with rapid ventricular response: Was started on Cardizem drip and Eliquis. She is converted back to sinus rhythm. Cardiology following 3. Hyponatremia: Likely secondary to her alcohol consumption of beer. Sodium level 116 on admission up to 124. Patient currently off of IV fluids. We'll place patient on fluid restrictions 1500ml per day 4. Alcohol intoxication present on admission with elevated alcohol level on admission. Patient placed on the CIWA protocol. Continue thiamine and multivitamin 5. Hypomagnesemia. Patient receiving magnesium supplement. 6. Elevated LFTs likely related to patient's alcohol consumption. Denies any abdominal pain. 7. Lactic acid elevated on admission improving with IV fluids. 8. History of COPD stable 9. Multiple scabs on patient's legs. Continue with Rocephin 10. Leukopenia likely related to patient's alcohol abuse. Continue to monitor 11. Anemia could be related to malnutrition as well as IV fluids. Continue to monitor. No active bleeding. Iron normal at 63 with a B12 and folate levels normal 12. Hypokalemia patient receiving potassium supplement consult PT OT Consultation for Dr. Gibbs was initiated for possible rehab admission
[2017-03-21 11:43] LABS: Basophils # (M) 0.03 k/uL (0-0.2); Eosinophils # (M) 0.06 k/uL (0-0.7); Metamyelocytes # (M) 0.03 k/uL (0); Metamyelocytes % 1 %; Neutrophils # (M) 1.38 k/uL (1.3-7.7); Neutrophils % (M) 46 %; Nucleated Red Blood Cells 0 /100 WBC (0-0); Total Cells Counted 100
[2017-03-21] MEDS: THIAMINE 100 MG TAB PO SCH ×2 (13:11→17:35)
[2017-03-21] MEDS: HYDROcodone/APAP 5-325MG 1 EACH TAB PO PRN (13:11)
[2017-03-21] MEDS: MULTIVITAMINS, THERA 1 EACH TAB PO SCH (13:11)
[2017-03-21] MEDS: LOPERAMIDE 2 MG CAP PO PRN (20:56)
[2017-03-21 23:56] VITALS: RESP 18
[2017-03-22 06:29] LABS: HGB 9.7 gm/dL (11.4-16.0); MCH 34.4 pg (25.0-35.0); MCHC 32.3 g/dL (31.0-37.0); MCV 106.2 fL (80.0-100.0); Macrocytosis Moderate; Mean Platelet Volume 7.2; Platelet Count 155 k/uL (150-450); RBC 2.83 m/uL (3.80-5.40); RDW 13.6 % (11.5-15.5); WBC 3.1 k/uL (3.8-10.6)
[2017-03-22 07:34] LABS: ALT 52 U/L (9-52); AST 49 U/L (14-36); Albumin 2.9 g/dL (3.5-5.0); Alkaline Phosphatase 136 U/L (38-126); Anion Gap 6 mmol/L; Blood Urea Nitrogen 4 mg/dL (7-17); Calcium 9.2 mg/dL (8.4-10.2); Carbon Dioxide 29 mmol/L (22-30); Chloride 95 mmol/L (98-107); Glucose 87 mg/dL (74-99); Potassium 3.9 mmol/L (3.5-5.1); Sodium 130 mmol/L (137-145); Total Bilirubin 0.6 mg/dL (0.2-1.3); Total Protein 5.5 g/dL (6.3-8.2)
[2017-03-22] MEDS: APIXABAN 5 MG TAB PO SCH (08:20)
[2017-03-22] MEDS: THIAMINE 100 MG TAB PO SCH (08:20)
[2017-03-22] MEDS: MULTIVITAMINS, THERA 1 EACH TAB PO SCH (08:20)
[2017-03-22] MEDS: cefTRIAXone IN SWFI 1,000 MG/10 ML SYRINGE IVP SCH (08:20)
[2017-03-22] MEDS: HYDROcodone/APAP 5-325MG 1 EACH TAB PO PRN (08:31)
[2017-03-22 08:38] LABS: Band Neutrophils % 1 %; Basophils # (M) 0.03 k/uL (0-0.2); Eosinophils # (M) 0.03 k/uL (0-0.7); Metamyelocytes # (M) 0.03 k/uL (0); Metamyelocytes % 1 %; Nucleated Red Blood Cells 0 /100 WBC (0-0)
[2017-03-22 08:40] LABS: Lymphocytes # (M) 0.62 k/uL (1.0-4.8); Monocytes # (M) 0.78 k/uL (0-1.0); Myelocytes # (M) 0.03 k/uL (0); Myelocytes % 1 %; Neutrophils % (M) 53 %; Poikilocytosis (M) Present; Total Cells Counted 200
--- NOTE | 2017-03-22 13:12 | P.DS ---
Providers Date of admission: 03/17/17 16:00 Expected date of discharge: 03/22/17 Attending physician: Mariela Sosa Consults: 03/18/17 13:37 Consult Physician Routine Consulting Provider: Sandeep Bates Consult Reason/Comments: possible episode of afib Do you want consulting provider notified?: Yes 03/19/17 14:40 Consult Physician Routine Consulting Provider: Zachariah Morgan Consult Reason/Comments: inpatient rehab Do you want consulting provider notified?: Yes Primary care physician: Mariela Sheila Lds Hospital Course: Discharge diagnosis 1. Bilateral lower extremity edema and pain with walking: Patient did receive 1 dose of IV Lasix in the emergency room. Chest x-ray showed no evidence of fluid overload. BNP was only 500. Venous Doppler was negative for DVT. Patient will be evaluated by cardiology. Patient also has severe protein calorie malnutrition. Which may be contributing to her edema. Ensure has been started 2. New onset of Atrial fibrillation with rapid ventricular response: Was started on Cardizem drip and Eliquis. She is converted back to sinus rhythm. Cardiology following. Patient off a Cardizem drip. Discussed case with cardiology. There is no need for rate control meds. They recommend just anticoagulation with Eliquis 3. Hyponatremia: Likely secondary to her alcohol consumption of beer. Sodium at discharge 130 4. Alcohol intoxication present on admission with elevated alcohol level on admission. Patient placed on the CIWA protocol. Continue thiamine and multivitamin 5. Hypomagnesemia. Patient receiving magnesium supplement. 6. Elevated LFTs likely related to patient's alcohol consumption. Denies any abdominal pain. 7. Lactic acid elevated on admission improving with IV fluids. 8. History of COPD stable 9. Multiple scabs on patient's legs. Continue with Rocephin 10. Leukopenia likely related to patient's alcohol abuse. Continue to monitor 11. Anemia could be related to malnutrition as well as IV fluids. Continue to monitor. No active bleeding. Iron normal at 63 with a B12 and folate levels normal 12. Hypokalemia patient receiving potassium supplement. Improved Hospital course This is a 67-year-old female with a known history of COPD, alcohol abuse, hyperlipidemia and dementia. Patient reports over the last week she's had lower extremity edema. She's having difficulty with ambulating. He reports that it hurts to walk on them. She has multiple bruising and scabs on her legs. She does report following some times. No loss of consciousness. Her alcohol level was elevated at 113 on admission she's been placed on the CIWA protocol. Dopplers of the lower extremities completed which were negative for DVT. She was given 1 dose of IV Lasix. Chest x-ray showed no acute pulmonary disease did show a mid thoracic vertebral compression deformity of indeterminate age. Patient does report having thoracic spinal fractures. She was found to be hyponatremic with a sodium level 116 and magnesium level 1.5. Telemetry monitoring showed possible atrial fibrillation with rapid ventricular response short episode with a heart rate of 158. Cardiology will be consulted. BNP level was in the 500s. Lactic acid level elevated admission at 3.3. Patient was given IV fluids. White count 2.6 hemoglobin 9.8 and platelets 140. She denies any chest pain or worsening shortness of breath. Denies any nausea or vomiting. Denies any difficulty or burning with urination. She reports that she always has chronic diarrhea. Stool for C. diff was ordered. This was negative. She patient is requesting to be restarted on her Imodium. Imodium has been ordered. Patient was seen evaluated by cardiology. She had no evidence of congestive heart failure. Likely her lower extremity edema was related to her hypoalbuminemia and hyponatremia. In terms have improved. Recommend the patient continues with her insurer and outpatient setting. Also encouraged patient to refrain from alcohol use. Patient also had new onset of atrial fibrillation with rapid ventricular response. She required to be placed on a Cardizem drip and Eliquis. She converted back to normal sinus rhythm. Her heart rate has been controlled. Cardiology is just recommending the Eliquis. No need for rate control method at this time. She'll follow-up with cardiology in the office. We'll follow up with Dr. Sosa in 1 week. Patient was evaluated by physical therapy she is safe for discharge home with home care. Recommend checking CBC and CMP in [address] Sosa's office I performed an examination of the patient and discussed their management with the physician Sales Operations Specialist. I have reviewed the Physician Sales Operations Specialist's notes and agree with the documented findings and plan of care Patient Condition at Discharge: Stable Plan - Discharge Summary Discharge Rx Participant: No New Discharge Prescriptions: New Apixaban [Eliquis] 5 mg PO BID tab Multivitamins, Thera [Multivitamin (formulary)] 1 each PO DAILY@1200 #30 tab Thiamine [Vitamin B-1] 100 mg PO DAILY #30 tab Continue HYDROcodone/APAP 5-325MG [[place] 5-325] 1 tab PO RT-BID PRN PRN Reason: Moderate To Severe Pain Ibuprofen 400 - 800 mg PO Q6H PRN PRN Reason: Pain Discharge Medication List HYDROcodone/APAP 5-325MG [[place] 5-325] 1 tab PO RT-BID PRN 06/03/16 [History] Ibuprofen 400 - 800 mg PO Q6H PRN 03/17/17 [History] Apixaban [Eliquis] 5 mg PO BID tab 03/22/17 [Rx] Multivitamins, Thera [Multivitamin (formulary)] 1 each PO DAILY@1200 #30 tab 01/25 [Rx] Thiamine [Vitamin B-1] 100 mg PO DAILY #30 tab 03/22/17 [Rx] Follow up Appointment(s)/Referral(s): Mariela Sosa MD [Primary Care Provider] - 04/01/17 3:15 pm ( Earliest available appointment) Ruthann Marques MD [STAFF PHYSICIAN] - 04/12/17 4:00 pm (Wednesday) [facility] Visiting Nurse, [NON-STAFF] - Patient Instructions/Handouts: A-fib (Atrial Fibrillation) (DC), Hyponatremia ( DC), Hypomagnesemia (DC), Safe Use of Anticoagulants (DC) Activity/Diet/Wound Care/Special Instructions: eliquis prescription sent to pharmacy. Co pay is $41. Free month applied Diet: regular Activity: as tolerated Discharge Disposition: HOME WITH HOME HEALTH SERVICES
[2017-03-22 13:36] VITALS: BP 119/64; PULSE 74; TEMP 98
== END 2017-03-22 15:12 | disposition home health service (06) | DRG 640 ==
LOC: EC 13:06 → 6SEL 16:00
PROVIDERS: ADMIT Internal Medicine; ATTEND Internal Medicine
DX: E87.1 Hypo-osmolality and hyponatremia (principal); E43 Unspecified severe protein-calorie malnutrition; F03.90 Unspecified dementia, unspecified severity, without behavioral disturbance, psychotic disturbance, mood disturbance, and anxiety; I48.0 Paroxysmal atrial fibrillation; E83.42 Hypomagnesemia; E87.6 Hypokalemia; F10.129 Alcohol abuse with intoxication, unspecified; H91.90 Unspecified hearing loss, unspecified ear; E78.5 Hyperlipidemia, unspecified; D64.9 Anemia, unspecified; D72.819 Decreased white blood cell count, unspecified; J43.9 Emphysema, unspecified; K52.9 Noninfective gastroenteritis and colitis, unspecified; M06.9 Rheumatoid arthritis, unspecified; M19.90 Unspecified osteoarthritis, unspecified site; M81.0 Age-related osteoporosis without current pathological fracture; Z82.49 Family history of ischemic heart disease and other diseases of the circulatory system; Z91.81 History of falling; Z79.1 Long term (current) use of non-steroidal anti-inflammatories (NSAID); Z79.899 Other long term (current) drug therapy; Z87.891 Personal history of nicotine dependence; R23.4 Changes in skin texture
CPT/HCPCS: 36415; 71046; 80048; 80053; 80320; 81003; 82550; 82553; 82607; 82728; 82746; 83540; 83550; 83605; 83735; 83880; 84484; 85025; 85610; 85730; 87040; 87324; 93005; 93306; 93970; 94640; 96372; 96374; 99285